=== PATIENT | male | born 1960 | race Caucasian/White ===

== ENCOUNTER → 2017-11-29 | Outpatient (CLI) | payer OTHER ==
[~2017-11-29] MED LIST: CHOL100010 PO; FLNCV PO; HYDR25TA4 PO; LISI40TA PO; PRLSR20 PO; TRAM-10 PO
[2017-11-29 11:43] LABS: BLOOD UREA NITROGEN 10 mg/dl (7-18); CREATININE 0.76 mg/dl (0.60-1.40); GLUCOSE 140 mg/dl (70-99)
[2017-11-29 11:44] LABS: ALBUMIN 4.1 gm/dl (3.4-5.0); CALCIUM 8.8 mg/dl (8.5-10.1); CARBON DIOXIDE 30 mmol/L (21-32); SODIUM 136 mmol/L (136-145); TOTAL PROTEIN 7.6 gm/dl (6.4-8.2)
[2017-11-29 11:45] LABS: ALKALINE PHOSPHATASE 66 U/L (45-117); ALT/SGPT 25 U/L (12-78); AST/SGOT 22 U/L (15-37); CHOLESTEROL 162 mg/dl (0-200)
[2017-11-29 11:46] LABS: LDL CHOLESTEROL CALCULATED 77 mg/dl
[2017-11-29 11:57] LABS: HEMOGLOBIN A1C 5.3 % (4.5-5.6)
== END | disposition home or self-care (01) ==
LOC: C.LABBC 08:14
PROVIDERS: ATTEND Family Medicine Adult Medicine
DX: I10 Essential (primary) hypertension (principal); E11.9 Type 2 diabetes mellitus without complications; E78.5 Hyperlipidemia, unspecified; Z72.0 Tobacco use; M48.061 Spinal stenosis, lumbar region without neurogenic claudication

== ENCOUNTER 2019-06-28 14:38 | Inpatient (IN) ==
[2019-06-28] MEDS ORDERED: LORazepam 1 MG/2 ML VIAL IV STA (15:31)
[2019-06-28] MEDS ORDERED: SODIUM CHLORIDE 0.9% 1000ML 500 ML IV ONE (15:37)
[2019-06-28] MEDS ORDERED: MULTI-VITAMIN INFUSION 10 ML, THIAMINE HCL 100 MG, FOLIC ACID 1 MG in SODIUM CHLORIDE 0... IV ONE (15:38)
[2019-06-28 15:43] LABS: Basophils # (auto) 0.02 K/uL (0-0.2); Basophils % (auto) 0.4 %; Eosinophils # (auto) 0.02 K/uL (0-0.5); Eosinophils % (auto) 0.4 %; Hematocrit (blood only) 38.8 % (42-52); Hemoglobin 13.9 g/dL (14.0-18.0); Immature Granulocytes # (auto) 0.02 K/uL (0.00-0.02); Immature Granulocytes % (auto) 0.4 %; Lymphocytes # (auto) 1.58 K/uL (1.2-3.4); Lymphocytes % (auto) 33.8 %; Mean Corpuscular Hemoglobin 34.2 pg (25-34); Mean Corpuscular Hgb Conc 35.8 g/dL (32-36); Mean Corpuscular Volume 95.3 fL (80-100); Mean Platelet Volume 9.7 fL (7.4-10.4); Monocytes # (auto) 0.43 K/uL (0.11-0.59); Monocytes % (auto) 9.2 %; Neutrophils # (auto) 2.61 K/uL (1.4-6.5); Neutrophils % (auto) 55.8 %; Platelet Count 265 K/uL (130-400); RDW Coefficient of Variation 12.5 % (11.5-14.5); RDW Standard Deviation 43.7 fL (36.4-46.3); Red Blood Count 4.07 M/uL (4.7-6.1); White Blood Count 4.68 K/uL (4.8-10.8)
[2019-06-28 15:51] LABS: Albumin Level 3.9 gm/dl (3.4-5.0); Aspartate Aminotransferase 76 U/L (15-37); Blood Urea Nitrogen 5 mg/dl (7-18); Calcium 8.9 mg/dl (8.5-10.1); Carbon Dioxide 26 mmol/L (21-32); Chloride 88 mmol/L (98-107); Glucose 123 mg/dl (70-99); Sodium 126 mmol/L (136-145)
[2019-06-28 15:52] LABS: Alanine Aminotransferase 65 U/L (12-78); BUN Creatinine Ratio 7.8 (10-20); Est GFR (African American) 130.3; Est GFR (Non-African American) 112.4
[2019-06-28] MEDS ORDERED: POTASSIUM CHLORIDE / WTR 10 MEQ/100 ML PLCT IV ONE (15:56)
[2019-06-28 15:57] LABS: Albumin Globulin Ratio 1.2 (0.9-2); Alkaline Phosphatase 93 U/L (45-117); Bilirubin,Total 0.8 mg/dl (0.2-1); Globulin 3.4 gm/dl (2.5-4.0); Magnesium 2.4 mg/dl (1.8-2.4); Total Protein 7.3 gm/dl (6.4-8.2); Troponin I < 0.015 ng/ml (0-0.045)
--- NOTE | 2019-06-28 16:06 | Emergency Department Note ---
ED Visit Note Patient seen with Dr. Dejesus, please see his note for details. Resident Activity Tracking Resident Involvement: Resident Care Provided Care Provided: [facility]
--- NOTE | 2019-06-28 16:10 | XRay Report ---
XR chest 1V portable CLINICAL HISTORY: 58 years-old Male presenting with seizure. TECHNIQUE: Portable upright AP view of the chest was obtained. COMPARISON: None. FINDINGS: Atherosclerosis of the aortic arch. Cardiac silhouette mildly enlarged. No focal opacity. No large ef fusion or pneumothorax. Degenerative changes of the thoracic spine. Degenerative changes of the shoul ders. Upper abdomen normal. IMPRESSION: 1. Mild cardiomegaly. No other convincing evidence of acute cardiopulmonary disease. Electronically signed by: Bimal Rodriguez M.D. 06/28/2019 4:08 PM
[2019-06-28 16:37] LABS: Amphetamines+Metham, Urine Neg (Neg); Barbiturates, Urine Neg (Neg); Benzodiazepine, Urine Neg (Neg); Cocaine, Urine Neg (Neg); MDMA (Ecstacy), Urine Neg (Neg); Methadone, Urine Neg (Neg); Opiate, Urine Neg (Neg); Phencyclidine, Urine Neg (Neg)
--- NOTE | 2019-06-28 16:50 | CT Scan Report ---
CT OF THE HEAD WITHOUT CONTRAST CLINICAL HISTORY: seizure COMPARISON STUDY: No previous studies for comparison. CT DOSE: 537.48 mGy.cm TECHNIQUE: Helical axial images of the head were obtained without IV contrast. Automated exposure con trol was utilized for the study. A dose lowering technique was utilized adhering to the principles o f ALARA. FINDINGS: No acute intracranial hemorrhage, midline shift or mass effect is present. The ventricular system is unremarkable. The basilar cisterns are patent. No extra-axial collections are present. Ther e are no findings to suggest acute dural sinus thrombosis or acute territorial infarct. No significan t calvarial abnormalities are present. Visualized portions of the sinuses and mastoid air cells are c lear. IMPRESSION: No acute intracranial findings. Electronically signed by: Donnie Russo M.D. 06/28/2019 4:47 PM
--- NOTE | 2019-06-28 17:19 | Emergency Department Note ---
Entered by Luz Marina Ugalde acting as a scribe for Ramez Dejesus MD History of Present Illness General Chief complaint: Seizure Stated complaint: seizure Time Seen by Provider: 06/28/19 14:58 Source: patient and family Mode of arrival: EMS Limitations: no limitations History of Present Illness Onset (ago): hour(s) 3 Location: head Radiation: non-radiation Pain Consistency: + now resolved Relieved By: + none Exacerbated By: + none Associated symptoms: + nausea/vomiting (+dry heaving) and + other (-tongue biting, -loss of bowel or bladder control); no chest pain, no fever/chills and no shortness of breath Treatments prior to arrival: none The patient is a 58 year old male who presents to the ED with complaints of seizure like activity that occurred around 1330 today. He does not remember the event but his parents were there and can provide history. His family states he was sitting on a chair when all of a sudden he started grunting, his eyes rolled back in his head and his head rolled back against the chair. He was briefly unresponsive so family called EMS. His father then came in the room, and eventually the patient came too after about 15 minutes. The patient did not bite his tongue. He denies losing control of his bladder or bowels. He states he does not remember feeling unwell before the episode but notes he was dry heaving this morning. He denies any recent fevers, chills, chest pain or shortness of breath. He does admit to a history of alcohol abuse and drinks around 3 to 4/30 packs of beer a week. He averages around 12 beers a day. He last drank around midnight last night. Home Medications Home Medications Medication Instructions Recorded Confirmed Type cholecalciferol (vitamin D3) 25 1,000 units PO QAM 08/22/18 06/28/19 History mcg (1,000 unit) capsule omeprazole magnesium 20 mg 20 mg PO QAM 08/22/18 06/28/19 History tablet,delayed release multivitamin 2 tab PO QAM 09/01/18 06/28/19 History hydrochlorothiazide 25 mg tablet 25 mg PO DAILY #90 tab 05/30/19 06/28/19 Rx lisinopril 40 mg tablet 40 mg PO DAILY #90 tab 05/30/19 06/28/19 Rx Allergies Allergy/AdvReac Type Severity Reaction Status Date / Time No Known Drug Allergies Allergy Unknown Verified 06/28/19 15:47 Past Med/Surg History Medical History Cardiac murmur no supervisor inspection Degenerative disc disease Diabetes mellitus (Chronic) no longer has after gastric bypass Dyslipidemia (Chronic) GERD (gastroesophageal reflux disease) History of gastric ulcer Hypertension (Chronic) Obesity (Chronic) Osteoarthritis Sleep apnea no longer has after gastric bypass Smokeless tobacco use (Chronic) Surgical History H/O repair of left rotator cuff (Chronic) H/O repair of right rotator cuff (Chronic) History of arthroscopy of left shoulder (Chronic) History of arthroscopy of right shoulder (Chronic) History of esophagogastroduodenoscopy (EGD) History of gastric bypass (Chronic) History of tonsillectomy and adenoidectomy Family History Mother Family history of diabetes mellitus Hypertension Migraine headache Unknown Diabetes Prostate cancer Other No family history of adverse response to anesthesia Social History Preferred Language: Algerian Communication Ability: Effective [place] Required: No Beliefs That Will Affect Care: None Current Living Situation: Spouse Feels Safe at Home: Yes Smoking Status: Former smoker Tobacco Type: smokeless tobacco ; Do You Dip or Chew Tobacco: Yes (1 can/day) ; Second Hand Exposure: No ; Tobacco Cessation Education Requested by Patient: No Hx Alcohol Use: Yes Alcohol type: beer Hx Substance Use: No Review of Systems See HPI for pertinent positives & negatives. and A total of 10 systems reviewed and were otherwise negative Physical Exam Vital Signs Vital Signs - 24 hr 06/28/19 14:43 06/28/19 14:47 06/28/19 15:20 Temperature 36.8 C Temperature Source Oral Pulse Rate 79 86 75 Respiratory Rate 26 H 20 17 Respiratory Effort / Characteristics Non-Labored Respiratory Depth Normal Blood Pressure 123/65 123/65 Blood Pressure Mean 69 84 Pulse Oximetry 97 Oxygen Delivery Method Room Air Sepsis Recent Fever Within 48 Hours No Sepsis Action Taken by Nursing No Action Required 06/28/19 15:30 06/28/19 16:00 06/28/19 16:41 Temperature Temperature Source Pulse Rate 73 63 Respiratory Rate 17 24 Respiratory Effort / Characteristics Respiratory Depth Blood Pressure Blood Pressure Mean Pulse Oximetry 96 Oxygen Delivery Method Room Air Sepsis Recent Fever Within 48 Hours Sepsis Action Taken by Nursing 06/28/19 16:42 06/28/19 16:43 06/28/19 17:00 Temperature Temperature Source Pulse Rate 78 88 Respiratory Rate 26 H 12 Respiratory Effort / Characteristics Respiratory Depth Blood Pressure 134/71 143/70 H Blood Pressure Mean 96 97 Pulse Oximetry Oxygen Delivery Method Sepsis Recent Fever Within 48 Hours Sepsis Action Taken by Nursing 06/28/19 17:01 06/28/19 17:30 06/28/19 17:31 Temperature Temperature Source Pulse Rate 83 65 64 Respiratory Rate 19 18 17 Respiratory Effort / Characteristics Respiratory Depth Blood Pressure 135/65 Blood Pressure Mean 78 Pulse Oximetry Oxygen Delivery Method Sepsis Recent Fever Within 48 Hours Sepsis Action Taken by Nursing GENERAL: Patient is in no acute distress. HEENT: No acute trauma, normocephalic atraumatic, mucous membranes moist, no nasal congestion, no scleral icterus. NECK: No stridor, no adenopathy, no meningismus, trachea is midline. LUNGS: Clear to auscultation bilaterally, no wheeze, no rhonchi, breath sounds equal. HEART: Subtle systolic murmur, regular rate and rhythm. ABDOMEN: Soft, nontender, bowel sounds positive, no hernias, no peritonitis. EXTREMITIES: No cyanosis or edema, full range of motion of all the joints without pain or difficulty, no signs for acute trauma. NEUROLOGIC: Oriented x 3, no acute motor or sensory deficits, no focal weakness. No cerebellar deficits. SKIN: No rash, no jaundice, no diaphoresis. Course Course 1545: The patient was evaluated in room A11 and a complete history and physical were performed. 1705: I reevaluated the patient. He is resting comfortably. I discussed his results and my recommendation he remain in the hospital for further evaluation and management and he is agreeable with the plan. 1715: I discussed the patients case with Dr. Jake Davison, [facility] ospitalist. The patient will be further evaluated. Administered Medications Enoxaparin Sodium (Lovenox) 40 mg SQ Q24H MIGUE Stop: 07/28/19 19:59 Last Admin: 06/28/19 20:50 Dose: 40 mg Documented by: [id number] Sodium Chloride (Nss 1000ml) 1,000 mls @ 75 mls/hr IV .[id number] MIGUE Stop: 07/28/19 19:44 Last Admin: 06/28/19 20:13 Dose: 75 mls/hr Documented by: [id number] Potassium Chloride (K Mark / Wtr) 10 meq in 100 mls @ 100 mls/hr IV Q1H MIGUE Stop: 06/28/19 23:59 Last Admin: 06/28/19 21:50 Dose: 100 mls/hr Documented by: [id number] Infusion: 06/28/19 21:50 Dose: 100 mls/hr Documented by: [id number] Admin: 06/28/19 20:52 Dose: 100 mls/hr Documented by: [id number] Discontinued Medications Chlordiazepoxide HCl (Librium) 50 mg PO NOW ONE Stop: 06/28/19 18:29 Last Admin: 06/28/19 19:24 Dose: 50 mg Documented by: [id number] Lorazepam (Ativan) 1 mg in 2 mls @ 2 mls/min IV NOW STA Stop: 06/28/19 15:32 Last Admin: 06/28/19 15:53 Dose: 2 mls/min Documented by: [id number] Sodium Chloride (Nss 1000ml) 500 mls @ 999 mls/hr IV .Q31M ONE Stop: 06/28/19 16:07 Last Infusion: 06/28/19 16:40 Dose: 0 mls/hr Documented by: [id number] Admin: 06/28/19 15:53 Dose: 999 mls/hr Documented by: [id number] Multivitamins 10 ml/ Thiamine HCl 100 mg/ Folic Acid 1 mg/Sodium Chloride 1,011.2 mls @ 1,011.2 mls/hr IV .Q1H ONE Stop: 06/28/19 16:37 Last Infusion: 06/28/19 19:29 Dose: 0 mls/hr Documented by: [id number] Admin: 06/28/19 16:39 Dose: 1,011.2 mls/hr Documented by: [id number] Potassium Chloride (K Mark / Wtr) 10 meq in 100 mls @ 100 mls/hr IV ONE ONE Stop: 06/28/19 16:55 Last Infusion: 06/28/19 19:29 Dose: 0 mls/hr Documented by: [id number] Admin: 06/28/19 17:20 Dose: 100 mls/hr Documented by: [id number] Medical Decision Making Differential Diagnosis The differential diagnoses considered include seizure, alcohol withdrawal, epilepsy, metabolic abnormality, electrolyte imbalance, drug abuse, dysrhythmia, intracranial mass or bleeding. Medical Records Attestation: I reviewed the patient's medical records. Home Medications Current Medication List: was personally reviewed by me Laboratory Data Attestation: I reviewed the patient's lab results. Result diagrams: 06/28/19 14:12 06/28/19 20:00 Lab Results 06/28/19 06/28/19 06/28/19 Range/Units 14:12 14:12 14:12 WBC 4.68 L (4.8-10.8) K/uL RBC 4.07 L (4.7-6.1) M/uL Hgb 13.9 L (14.0-18.0) g/dL Hct 38.8 L (42-52) % MCV 95.3 (80-100) fL MCH 34.2 H (25-34) pg MCHC 35.8 (32-36) g/dL RDW Std Deviation 43.7 (36.4-46.3) fL RDW Coeff of Cherelle 12.5 (11.5-14.5) % Plt Count 265 (130-400) K/uL MPV 9.7 (7.4-10.4) fL Immature Gran % (Auto) 0.4 % Neut % (Auto) 55.8 % Lymph % (Auto) 33.8 % [place]to[place] % (Auto) 9.2 % Eos % (Auto) 0.4 % Baso % (Auto) 0.4 % Immature Gran # (Auto) 0.02 (0.00-0.02) K/uL Neut # (Auto) 2.61 (1.4-6.5) K/uL Lymph # (Auto) 1.58 (1.2-3.4) K/uL [place] # (Auto) 0.43 (0.11-0.59) K/uL Eos # (Auto) 0.02 (0-0.5) K/uL Baso # (Auto) 0.02 (0-0.2) K/uL Sodium 126 L (136-145) mmol/L Potassium 3.0 L (3.5-5.1) mmol/L Chloride 88 L (98-107) mmol/L Carbon Dioxide 26 (21-32) mmol/L Anion Gap 12.0 H (3-11) BUN 5 L (7-18) mg/dl Creatinine 0.60 (0.6-1.4) mg/dl Est Cr Clr Drug Dosing 162.0 ml/min Est GFR ( Amer) 130.3 Est GFR (Non-Af Amer) 112.4 BUN/Creatinine Ratio 7.8 L (10-20) Glucose 123 H (70-99) mg/dl Osmolality (280-300) mOsm/kg Calcium 8.9 (8.5-10.1) mg/dl Magnesium 2.4 Cancelled (1.8-2.4) mg/dl Total Bilirubin 0.8 (0.2-1) mg/dl AST 76 H (15-37) U/L ALT 65 (12-78) U/L Alkaline Phosphatase 93 (45-117) U/L CK-MB (CK-2) (0.5-3.6) ng/ml Troponin I < 0.015 (0-0.045) ng/ml Total Protein 7.3 (6.4-8.2) gm/dl Albumin 3.9 (3.4-5.0) gm/dl Globulin 3.4 (2.5-4.0) gm/dl Albumin/Globulin Ratio 1.2 (0.9-2) TSH (0.300-4.500) uIu/ml Random Cortisol mcg/dl Urine Opiates Screen (Neg) Ur Methadone, Qual (Neg) Urine Barbiturates (Neg) Ur Phencyclidine (PCP) (Neg) U Amphetamin/Meth Scrn (Neg) MDMA (Ecstasy) Screen (Neg) U Benzodiazepines Scrn (Neg) Ur Cocaine Metabolite (Neg) U Marijuana (THC) Screen (Neg) Ethyl Alcohol mg/dL (0-3) mg/dl 06/28/19 06/28/19 06/28/19 Range/Units 14:12 14:12 14:12 WBC (4.8-10.8) K/uL RBC (4.7-6.1) M/uL Hgb (14.0-18.0) g/dL Hct (42-52) % MCV (80-100) fL MCH (25-34) pg MCHC (32-36) g/dL RDW Std Deviation (36.4-46.3) fL RDW Coeff of Cherelle (11.5-14.5) % Plt Count (130-400) K/uL MPV (7.4-10.4) fL Immature Gran % (Auto) % Neut % (Auto) % Lymph % (Auto) % Oto[place] % (Auto) % Eos % (Auto) % Baso % (Auto) % Immature Gran # (Auto) (0.00-0.02) K/uL Neut # (Auto) (1.4-6.5) K/uL Lymph # (Auto) (1.2-3.4) K/uL Otoe # (Auto) (0.11-0.59) K/uL Eos # (Auto) (0-0.5) K/uL Baso # (Auto) (0-0.2) K/uL Sodium (136-145) mmol/L Potassium (3.5-5.1) mmol/L Chloride (98-107) mmol/L Carbon Dioxide (21-32) mmol/L Anion Gap (3-11) BUN (7-18) mg/dl Creatinine (0.6-1.4) mg/dl Est Cr Clr Drug Dosing ml/min Est GFR ( Amer) Est GFR (Non-Af Amer) BUN/Creatinine Ratio (10-20) Glucose (70-99) mg/dl Osmolality 319 H (280-300) mOsm/kg Calcium (8.5-10.1) mg/dl Magnesium (1.8-2.4) mg/dl Total Bilirubin (0.2-1) mg/dl AST (15-37) U/L ALT (12-78) U/L Alkaline Phosphatase (45-117) U/L CK-MB (CK-2) 8.0 H (0.5-3.6) ng/ml Troponin I (0-0.045) ng/ml Total Protein (6.4-8.2) gm/dl Albumin (3.4-5.0) gm/dl Globulin (2.5-4.0) gm/dl Albumin/Globulin Ratio (0.9-2) TSH 1.730 (0.300-4.500) uIu/ml Random Cortisol 42.52 mcg/dl Urine Opiates Screen (Neg) Ur Methadone, Qual (Neg) Urine Barbiturates (Neg) Ur Phencyclidine (PCP) (Neg) U Amphetamin/Meth Scrn (Neg) MDMA (Ecstasy) Screen (Neg) U Benzodiazepines Scrn (Neg) Ur Cocaine Metabolite (Neg) U Marijuana (THC) Screen (Neg) Ethyl Alcohol mg/dL (0-3) mg/dl 06/28/19 06/28/19 Range/Units 15:58 16:00 WBC (4.8-10.8) K/uL RBC (4.7-6.1) M/uL Hgb (14.0-18.0) g/dL Hct (42-52) % MCV (80-100) fL MCH (25-34) pg MCHC (32-36) g/dL RDW Std Deviation (36.4-46.3) fL RDW Coeff of Cherelle (11.5-14.5) % Plt Count (130-400) K/uL MPV (7.4-10.4) fL Immature Gran % (Auto) % Neut % (Auto) % Lymph % (Auto) % [place]to[place] % (Auto) % Eos % (Auto) % Baso % (Auto) % Immature Gran # (Auto) (0.00-0.02) K/uL Neut # (Auto) (1.4-6.5) K/uL Lymph # (Auto) (1.2-3.4) K/uL Oto[place] # (Auto) (0.11-0.59) K/uL Eos # (Auto) (0-0.5) K/uL Baso # (Auto) (0-0.2) K/uL Sodium (136-145) mmol/L Potassium (3.5-5.1) mmol/L Chloride (98-107) mmol/L Carbon Dioxide (21-32) mmol/L Anion Gap (3-11) BUN (7-18) mg/dl Creatinine (0.6-1.4) mg/dl Est Cr Clr Drug Dosing ml/min Est GFR ( Amer) Est GFR (Non-Af Amer) BUN/Creatinine Ratio (10-20) Glucose (70-99) mg/dl Osmolality (280-300) mOsm/kg Calcium (8.5-10.1) mg/dl Magnesium (1.8-2.4) mg/dl Total Bilirubin (0.2-1) mg/dl AST (15-37) U/L ALT (12-78) U/L Alkaline Phosphatase (45-117) U/L CK-MB (CK-2) (0.5-3.6) ng/ml Troponin I (0-0.045) ng/ml Total Protein (6.4-8.2) gm/dl Albumin (3.4-5.0) gm/dl Globulin (2.5-4.0) gm/dl Albumin/Globulin Ratio (0.9-2) TSH (0.300-4.500) uIu/ml Random Cortisol mcg/dl Urine Opiates Screen Neg (Neg) Ur Methadone, Qual Neg (Neg) Urine Barbiturates Neg (Neg) Ur Phencyclidine (PCP) Neg (Neg) U Amphetamin/Meth Scrn Neg (Neg) MDMA (Ecstasy) Screen Neg (Neg) U Benzodiazepines Scrn Neg (Neg) Ur Cocaine Metabolite Neg (Neg) U Marijuana (THC) Screen Neg (Neg) Ethyl Alcohol mg/dL 195.0 H (0-3) mg/dl Imaging Data Radiologist's Impression: Radiology results as stated below per my review and the radiologist's interpretation: XR chest 1V portable CLINICAL HISTORY: 58 years-old Male presenting with seizure. TECHNIQUE: Portable upright AP view of the chest was obtained. COMPARISON: None. FINDINGS: Atherosclerosis of the aortic arch. Cardiac silhouette mildly enlarged. No focal opacity. No large effusion or pneumothorax. Degenerative changes of the thoracic spine. Degenerative changes of the shoulders. Upper abdomen normal. IMPRESSION: 1. Mild cardiomegaly. No other convincing evidence of acute cardiopulmonary disease. Electronically signed by: Bimal Rodriguez M.D. 06/28/2019 4:[address] OF THE HEAD WITHOUT CONTRAST CLINICAL HISTORY: seizure COMPARISON STUDY: No previous studies for comparison. CT DOSE: 537.48 mGy.cm TECHNIQUE: Helical axial images of the head were obtained without IV contrast. Automated exposure control was utilized for the study. A dose lowering technique was utilized adhering to the principles of ALARA. FINDINGS: No acute intracranial hemorrhage, midline shift or mass effect is present. The ventricular system is unremarkable. The basilar cisterns are patent. No extra-axial collections are present. There are no findings to suggest acute dural sinus thrombosis or acute territorial infarct. No significant calvarial abnormalities are present. Visualized portions of the sinuses and ma stoid air cells are clear. IMPRESSION: No acute intracranial findings. Electronically signed by: Donnie Russo M.D. 06/28/2019 4:47 PM ECG Data Attestation: I personally reviewed and interpreted this ECG as follows: Indication: + weakness (seizure like activity) Rate (beats per minute): 70 Rhythm: + normal sinus ECG Intervals/blocks: + Normal QT-c (QTC is 438) ECG ST segments: no ST elevation ECG Findings: no PVCs Blood Pressure Blood Pressure Findings: Elevated blood pressure Blood Pressure Disposition: further management by hospitalist MDM Narrative Resident Physician Supervision Note: I did perform an independent evaluation and examination of this patient as described. I also saw this patient in conjunction with the resident, Dr. Ravi Nayak MD, and guided management for the patient. There is no leukocytosis. No worrisome anemia. Renal panel testing shows a low sodium and a low potassium. AST mildly elevated, no bilirubin elevation. EKG shows a sinus rhythm, no acute ischemia. Cardiac enzyme testing x1 is not co nsistent with acute cardiac injury. Alcohol level was elevated at 195. Urine tox was negative. Brain CT shows no acute bleed or mass-effect. Chest film does not show pneumonia or CHF. On exam, the patient was awake and interactive, there were no focal neurologic deficits. The patient was given IV potassium, IV Ativan and IV saline. He was given a bag of saline, multivitamins, thiamine and folate. The patient presents with a potential seizure. This seizure activity certainly could have been secondary to alcohol withdrawal. He does have a low sodium and low magnesium in addition. I do think a hospital stay for further work-up is warranted. Patient was told results of all his findings. Case management has been involved. The on-call hospitalist has been consulted. Impression & Plan Seizure, Hyponatremia, Hypokalemia, Alcohol abuse Discharge Plan Visit Data *Final* Discharge Date/Time: 06/28/19 19:30 Chief Complaint: Seizure Stated Complaint: seizure ED Provider: Ramez Dejesus ED Midlevel Provider: Ravi Nayak Discharge Problem: Seizure, Hyponatremia, Hypokalemia, Alcohol abuse Patient Disposition: Admitted As Inpatient Discharge Instructions Interventions: ED Discharge Assessment Last Done: 06/28/19 19:30 The scribe's documentation has been prepared under my direction and personally reviewed by me in its entirety. I confirm that the note above accurately reflects all work, treatment, procedures, and medical decision making performed by me.
[2019-06-28] MEDS ORDERED: chlordiazePOXIDE HCl 25 MG CAP PO ONE (18:28)
--- NOTE | 2019-06-28 18:43 | History & Physical Report ---
Date of Service June 28, 2019 Assessment & Plan (1) Seizure: 58-year-old male was admitted on 28 June 2019 for seizure and electrolyte issues. Seizure: First known seizure-like activity around 1330 on day of admit. No reported recent fevers/illness, trauma, or illicit drug use. Does have moderate hyponatremia. No present neuro deficits to suggest CVA. - In ED, afebrile, not tachycardic or tachypneic, normotensive with normal room SpO2. WBC 4. Negative TnI and EKG NSR 70. UDS negative. Positive EtOH. CT head without acute findings. pCXR with questionable cardiomegaly but otherwise non-acute. - In ED, given normal saline IVF, thiamine + folate + MVI via IV, and 1 mg of Ativan. - Consult neurology. Alcohol treatment as below. Hold further antiepileptics initially but Ativan prn for new seizure. Alcohol abuse: Reportedly drinks anywhere between 6-15 beers a day. Admit EtOH 195, AST 76, ALT 65. - Will place on AWSS program. High risk for DTs. Start Librium taper: 50 mg PO x 1, then 25 mg PO x 3 doses, then 10 mg PO x 3 doses. Thiamine and folic acid daily. Hyponatremia: Admit Na 126, likely related to beer potomania. No obvious related cognitive symptoms. - Will hold home HCTZ. Check serum Osm and urine Osm + Na. Treat with NS IVF at 75 mL/hr. Goal rise Na < 2 mmol/L in a four hour timeframe. Check BMP q4h x 4. Also check CK and TSH. Hypokalemia: Admit K 3.0. Replacement began in ED. Will continue and recheck in a.m. (along with Mg). Ongoing medical history: - Hypertension, hyperlipidemia: Hold home HCTZ and Lisinopril given current electrolyte issues. - GERD: Continue home omeprazole. - PMH diabetes, sleep apnea, obesity: Reportedly all resolved after gastric bypass surgery. Will check A1c. - ? 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 Admit creatinine 0.6. Code status: Full code. Diet: Regular but fluid restrict to 1200 mL. DVT prophy: Lovenox. PT/OT: Deferred. Disbo: Admit to [facility] telemetry. (2) Alcohol abuse: (3) Hyponatremia: (4) Hypokalemia: (5) Hypertension: (6) Dyslipidemia: (7) H/O gastric bypass: (8) GERD (gastroesophageal reflux disease): History of Present Illness Primary Care Provider: Rosendo Mckeon DO 58-year-old male presents after having a likely first-time seizure. Patient does not recall all the events but does recall shaking for a period of time and being confused. History is per family (not present during this H&P), thus via the patient's recollections of their account and the ED notes. - Patient notes that around 1330 today he had the sudden onset of some grunting, eye rolling, and then became unresponsive with generalized shaking. This lasted for a few minutes (exact time unknown) followed by a period of decreased responsiveness. In total lasted perhaps 15 minutes. Patient denies any tongue biting or bowel/bladder incontinence. He denies any vomiting as well. - No known history of the same. He denies any recent fevers or feeling of illness, head injuries, illicit drug use, or other suspected sources. Patient does have a history of alcohol abuse. On this H&P, he says he drinks about 6 beers per day. Per the ED's account, he drinks 12-15 beers per day. - At present, patient denies any symptoms at all. Specifically, he denies any headache, blurry vision, difficulty with speech or movement of his extremities, focal pain anywhere, or any emergent concerns. He says he is only here at the insistence of his family. - On review of systems, patient made mention that he takes hydrochlorothiazide for his blood pressure but says it also helps him urinate. 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 He also notes he had a history of hyperlipidemia, diabetes, sleep apnea, and obesity. He says all of these issues resolved after he underwent gastric bypass surgery around 2004. - Past medical history includes hypertension, hyperlipidemia, diabetes, sleep ap too, obesity, GERD, gastric ulcer, osteoarthritis, degenerative disc disease - Past surgical history includes gastric bypass, tonsillectomy and adenoidectomy, arthroscopy of bilateral shoulders, bilateral rotator cuff repairs - Social history includes prior cigar smoker. Drinks beer as noted above. Lives at home with . Allergies Allergy/AdvReac Type Severity Reaction Status Date / Time No Known Drug Allergies Allergy Unknown Verified 06/28/19 15:47 Home Medications Home Medications Medication Instructions Recorded Confirmed Type cholecalciferol (vitamin D3) 25 1,000 units PO QAM 08/22/18 06/28/19 History mcg (1,000 unit) capsule omeprazole magnesium 20 mg 20 mg PO QAM 08/22/18 06/28/19 History tablet,delayed release multivitamin 2 tab PO QAM 09/01/18 06/28/19 History hydrochlorothiazide 25 mg tablet 25 mg PO DAILY #90 tab 05/30/19 06/28/19 Rx lisinopril 40 mg tablet 40 mg PO DAILY #90 tab 05/30/19 06/28/19 Rx Past Med/Surg History Medical History Cardiac murmur no mix mill tender Degenerative disc disease Diabetes mellitus (Chronic) no longer has after gastric bypass Dyslipidemia (Chronic) GERD (gastroesophageal reflux disease) History of gastric ulcer Hypertension (Chronic) Obesity (Chronic) Osteoarthritis Sleep apnea no longer has after gastric bypass Smokeless tobacco use (Chronic) Surgical History H/O repair of left rotator cuff (Chronic) H/O repair of right rotator cuff (Chronic) History of arthroscopy of left shoulder (Chronic) History of arthroscopy of right shoulder (Chronic) History of esophagogastroduodenoscopy (EGD) History of gastric bypass (Chronic) History of tonsillectomy and adenoidectomy Family History Mother Family history of diabetes mellitus Hypertension Migraine headache Unknown Diabetes Prostate cancer Other No family history of adverse response to anesthesia Social History Preferred Language: Pashto Communication Ability: Effective 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: No Beliefs That Will Affect Care: None Current Living Situation: Spouse Feels Safe at Home: Yes Smoking Status: Former smoker Tobacco Type: smokeless tobacco ; Do You Dip or Chew Tobacco: Yes (1 can/day) ; Second Hand Exposure: No ; Tobacco Cessation Education Requested by Patient: No Hx Alcohol Use: Yes Alcohol type: beer Hx Substance Use: No Review of Systems Review of Systems: Constitutional: Denies fevers, chills, focal weakness Eyes: Denies any visual loss or diplopia ENT: Denies any ear/nose/throat pain or difficulty speaking or swallowing Respiratory: Denies any dyspnea, cough, hemoptysis Cardiovascular: Denies any chest pain or feeling of edema Gastrointestinal: Denies any abdominal pain, nausea/vomiting/diarrhea Musculoskeletal: Denies any acute extremity pains, myalgias, or focal weakness Skin: Denies any known acute rashes or lesions Neuro: Denies any headache, acute focal weakness or numbness, or difficulties with speech or swallow. Positive seizure-like activity as noted above. Physical Exam Physical Exam: GENERAL: Awake, alert, well-appearing, in no acute distress HENT: Normocephalic, atraumatic. Oropharynx unremarkable. EYES: Normal conjunctiva. Sclera non-icteric. NECK: Inspection normal. Non-tender. Supple and full ROM. No nuchal rigidity. CARDIAC: +S1S2 RRR, no murmurs. RESPIRATORY: Clear to auscultation. No wheezes or rales. Normal respiratory effort. GI: +BS, soft, non-distended. No tenderness to palpation. No rebound or guarding. Positive right-sided mid abdominal wall hernia that is easily and self reducible. EXTREMITIES: No pedal edema or calf tenderness. Moving all extremities naturally and easily. NEURO: Cranial nerves grossly intact. Normal strength and sensation in all extremities. Results & Data Vital Signs (Past 12 Hours) Vital Signs Temp Pulse Resp BP Pulse Ox 06/28/19 16:42 134/71 06/28/19 16:41 96 06/28/19 16:00 63 24 06/28/19 15:30 73 17 06/28/19 15:20 75 17 06/28/19 14:47 36.8 C 86 20 123/65 97 06/28/19 14:43 79 26 H 123/65 Laboratory Results 06/28/19 06/28/19 06/28/19 Range/Units 16:00 15:58 14:12 WBC (4.8-10.8) K/uL RBC (4.7-6.1) M/uL Hgb (14.0-18.0) g/dL Hct (42-52) % MCV (80-100) fL MCH (25-34) pg MCHC (32-36) g/dL RDW Std Deviation (36.4-46.3) fL RDW Coeff of Cherelle (11.5-14.5) % Plt Count (130-400) K/uL MPV (7.4-10.4) fL Immature Gran % (Auto) % Neut % (Auto) % Lymph % (Auto) % [place] % (Auto) % Eos % (Auto) % Baso % (Auto) % Immature Gran # (Auto) (0.00-0.02) K/uL Neut # (Auto) (1.4-6.5) K/uL Lymph # (Auto) (1.2-3.4) K/uL [place] # (Auto) (0.11-0.59) K/uL Eos # (Auto) (0-0.5) K/uL Baso # (Auto) (0-0.2) K/uL Sodium (136-145) mmol/L Potassium (3.5-5.1) mmol/L Chloride (98-107) mmol/L Carbon Dioxide (21-32) mmol/L Anion Gap (3-11) BUN (7-18) mg/dl Creatinine (0.6-1.4) mg/dl Est Cr Clr Drug Dosing ml/min Est GFR ( Amer) Est GFR (Non-Af Amer) BUN/Creatinine Ratio (10-20) Glucose (70-99) mg/dl Calcium (8.5-10.1) mg/dl Magnesium Cancelled (1.8-2.4) mg/dl Total Bilirubin (0.2-1) mg/dl AST (15-37) U/L ALT (12-78) U/L Alkaline Phosphatase (45-117) U/L Troponin I (0-0.045) ng/ml Total Protein (6.4-8.2) gm/dl Albumin (3.4-5.0) gm/dl Globulin (2.5-4.0) gm/dl Albumin/Globulin Ratio (0.9-2) Urine Opiates Screen Neg (Neg) Ur Methadone, Qual Neg (Neg) Urine Barbiturates Neg (Neg) Ur Phencyclidine (PCP) Neg (Neg) U Amphetamin/Meth Scrn Neg (Neg) MDMA (Ecstasy) Screen Neg (Neg) U Benzodiazepines Scrn Neg (Neg) Ur Cocaine Metabolite Neg (Neg) U Marijuana (THC) Screen Neg (Neg) Ethyl Alcohol mg/dL 195.0 H (0-3) mg/dl 06/28/19 06/28/19 Range/Units 14:12 14:12 WBC 4.68 L (4.8-10.8) K/uL RBC 4.07 L (4.7-6.1) M/uL Hgb 13.9 L (14.0-18.0) g/dL Hct 38.8 L (42-52) % MCV 95.3 (80-100) fL MCH 34.2 H (25-34) pg MCHC 35.8 (32-36) g/dL RDW Std Deviation 43.7 (36.4-46.3) fL RDW Coeff of Cherelle 12.5 (11.5-14.5) % Plt Count 265 (130-400) K/uL MPV 9.7 (7.4-10.4) fL Immature Gran % (Auto) 0.4 % Neut % (Auto) 55.8 % Lymph % (Auto) 33.8 % [place] % (Auto) 9.2 % Eos % (Auto) 0.4 % Baso % (Auto) 0.4 % Immature Gran # (Auto) 0.02 (0.00-0.02) K/uL Neut # (Auto) 2.61 (1.4-6.5) K/uL Lymph # (Auto) 1.58 (1.2-3.4) K/uL [place] # (Auto) 0.43 (0.11-0.59) K/uL Eos # (Auto) 0.02 (0-0.5) K/uL Baso # (Auto) 0.02 (0-0.2) K/uL Sodium 126 L (136-145) mmol/L Potassium 3.0 L (3.5-5.1) mmol/L Chloride 88 L (98-107) mmol/L Carbon Dioxide 26 (21-32) mmol/L Anion Gap 12.0 H (3-11) BUN 5 L (7-18) mg/dl Creatinine 0.60 (0.6-1.4) mg/dl Est Cr Clr Drug Dosing 162.0 ml/min Est GFR ( Amer) 130.3 Est GFR (Non-Af Amer) 112.4 BUN/Creatinine Ratio 7.8 L (10-20) Glucose 123 H (70-99) mg/dl Calcium 8.9 (8.5-10.1) mg/dl Magnesium 2.4 (1.8-2.4) mg/dl Total Bilirubin 0.8 (0.2-1) mg/dl AST 76 H (15-37) U/L ALT 65 (12-78) U/L Alkaline Phosphatase 93 (45-117) U/L Troponin I < 0.015 (0-0.045) ng/ml Total Protein 7.3 (6.4-8.2) gm/dl Albumin 3.9 (3.4-5.0) gm/dl Globulin 3.4 (2.5-4.0) gm/dl Albumin/Globulin Ratio 1.2 (0.9-2) Urine Opiates Screen (Neg) Ur Methadone, Qual (Neg) Urine Barbiturates (Neg) Ur Phencyclidine (PCP) (Neg) U Amphetamin/Meth Scrn (Neg) MDMA (Ecstasy) Screen (Neg) U Benzodiazepines Scrn (Neg) Ur Cocaine Metabolite (Neg) U Marijuana (THC) Screen (Neg) Ethyl Alcohol mg/dL (0-3) mg/dl Medications Administered Discontinued Medications Lorazepam (Ativan) 1 mg in 2 mls @ 2 mls/min IV NOW STA Stop: 06/28/19 15:32 Last Admin: 06/28/19 15:53 Dose: 2 mls/min Documented by: [id number] Sodium Chloride (Nss 1000ml) 500 mls @ 999 mls/hr IV .Q31M ONE Stop: 06/28/19 16:07 Last Infusion: 06/28/19 16:40 Dose: 0 mls/hr Documented by: [id number] Admin: 06/28/19 15:53 Dose: 999 mls/hr Documented by: [id number] Multivitamins 10 ml/ Thiamine HCl 100 mg/ Folic Acid 1 mg/Sodium Chloride 1,011.2 mls @ 1,011.2 mls/hr IV .Q1H ONE Stop: 06/28/19 16:37 Last Admin: 06/28/19 16:39 Dose: 1,011.2 mls/hr Documented by: [id number] Potassium Chloride (K Mark / Wtr) 10 meq in 100 mls @ 100 mls/hr IV ONE ONE Stop: 06/28/19 16:55 Last Admin: 06/28/19 17:20 Dose: 100 mls/hr Documented by: [id number] Code Status & VTE Plan Code Status Full code VTE Prophylaxis Plan VTE Prophylaxis will be ordered: Yes Supervising Physician Co-Signing Physician Notes I personally interviewed and examined the patient. I agree with history of present illness and physical exam mentioned above, I also performed my own history taking and examination. Past medical history and review of system has been obtained by myself I reviewed all pertinent labs and studies Reviewed current medications I discussed and formulated of the assessment and plan mentioned above. Please refer to the Summary mentioned below. 58 years old man with history of significant alcohol abuse in the form of more than 30 cans of beers every day also patient chews tobacco, was in his regular state of health until he had an episode of seizure today. Presented to the hospital and was found to have sodium level of 126, alcohol level of 195, Potassium level of 3 Currently appears to be stable. Hyponatremia/failure to thrive/generalized fatigue, multifactorial, anorexia, decreased solute intake, check serum and urine osmolality , check TSH and cortisol level order urine sodium and potassium consider sodium tablets if sodium level do not improve Nephrology consult if needed if sodium level fail to rise Consider starting Tolvaptan while inpatient, to monitor closely sodium level but will leave this decision up to bottom presser as he should be consulted prior to starting tolvaptan. Monitor sodium level closely/every 8 hours, avoid correcting sodium with a rate faster than 6 mmol per day Check orthostatic vitals daily Avoid a rate of correction > 0.5 mmol/ hour INF hydration Continue boost supplement General Appearance: not in acute distress Eyes: normal Sclerae, extraocular muscle intact ENT: hearing grossly normal Neck: supple Respiratory/Chest: normal air entry bilateral ,no respiratory distress, no accessory muscle use Cardiovascular: regular rate, rhythm, no murmur Abdomen: non tender, soft, no masses Extremities: no edema musculoskeletal: no significant swelling or inflammation in any joint Neurologic/Psychiatric: Awake alert oriented times place and person moves all extremities sensation intact cranial nerves II-12 appear to be intact Skin: normal color, warm/dry, no rash Lito Davison MD, [facility]
[2019-06-28] MEDS ORDERED: LORazepam 1 MG/2 ML VIAL IV PRN (19:45)
[2019-06-28] MEDS ORDERED: LORazepam 2 MG/4 ML VIAL IV PRN (19:45)
[2019-06-28] MEDS: SODIUM CHLORIDE 0.9% 1000ML 1,000 ML IV SCH (20:13)
[2019-06-28] MEDS: ENOXAPARIN INJ 40 MG/0.4 ML SYR SQ SCH (20:50)
[2019-06-28] MEDS: POTASSIUM CHLORIDE / WTR 10 MEQ/100 ML PLCT IV SCH ×3 (20:52→22:57)
[2019-06-28 21:02] LABS: BUN Creatinine Ratio 7.9 (10-20); Calcium 8.6 mg/dl (8.5-10.1); Creatinine Clr Calc Pharmacy 206.3 ml/min; Est GFR (Non-African American) 124.3; Magnesium 2.3 mg/dl (1.8-2.4); Potassium 3.5 mmol/L (3.5-5.1)
--- NOTE | 2019-06-28 22:45 | Billing Data ---
Date of Service June 28, 2019 Coding Level of Care Code 75612 Initial Inpt Care Lvl 3
[2019-06-28 23:16] LABS: Potassium Random Urine 19.8 mmol/L
[2019-06-29] MEDS: POTASSIUM CHLORIDE / WTR 10 MEQ/100 ML PLCT IV SCH (00:03)
[2019-06-29 00:14] LABS: BUN Creatinine Ratio 10.8 (10-20); Blood Urea Nitrogen 5 mg/dl (7-18); Calcium 8.5 mg/dl (8.5-10.1); Carbon Dioxide 25 mmol/L (21-32); Chloride 96 mmol/L (98-107); Est GFR (African American) 142.8; Est GFR (Non-African American) 123.2; Glucose 86 mg/dl (70-99); Potassium 3.4 mmol/L (3.5-5.1); Sodium 130 mmol/L (136-145)
[2019-06-29 00:27] LABS: Troponin I < 0.015 ng/ml (0-0.045)
[2019-06-29] MEDS: chlordiazePOXIDE HCl 25 MG CAP PO SCH ×3 (05:47→21:38)
[2019-06-29 06:02] LABS: Estimated Average Glucose 97 mg/dl
[2019-06-29 06:52] LABS: Basophils # (auto) 0.02 K/uL (0-0.2); Basophils % (auto) 0.4 %; Eosinophils # (auto) 0.03 K/uL (0-0.5); Eosinophils % (auto) 0.6 %; Hematocrit (blood only) 36.8 % (42-52); Hemoglobin 12.9 g/dL (14.0-18.0); Immature Granulocytes # (auto) 0.03 K/uL (0.00-0.02); Immature Granulocytes % (auto) 0.6 %; Lymphocytes # (auto) 0.93 K/uL (1.2-3.4); Mean Corpuscular Hemoglobin 34.4 pg (25-34); Mean Corpuscular Hgb Conc 35.1 g/dL (32-36); Mean Corpuscular Volume 98.1 fL (80-100); Mean Platelet Volume 9.4 fL (7.4-10.4); Monocytes # (auto) 0.54 K/uL (0.11-0.59); Monocytes % (auto) 10.4 %; Neutrophils # (auto) 3.63 K/uL (1.4-6.5); Platelet Count 207 K/uL (130-400); RDW Coefficient of Variation 12.6 % (11.5-14.5); RDW Standard Deviation 45.2 fL (36.4-46.3); Red Blood Count 3.75 M/uL (4.7-6.1); White Blood Count 5.18 K/uL (4.8-10.8)
[2019-06-29 07:26] LABS: Albumin Level 3.3 gm/dl (3.4-5.0); BUN Creatinine Ratio 9.9 (10-20); Calcium 8.8 mg/dl (8.5-10.1); Creatinine Clr Calc Pharmacy 167.2 ml/min; Est GFR (African American) 132.1; Magnesium 2.2 mg/dl (1.8-2.4); Potassium 3.2 mmol/L (3.5-5.1)
[2019-06-29 07:31] LABS: BUN Creatinine Ratio 9.3 (10-20); Blood Urea Nitrogen 5 mg/dl (7-18); Calcium 8.6 mg/dl (8.5-10.1); Carbon Dioxide 27 mmol/L (21-32); Chloride 99 mmol/L (98-107); Creatinine Clr Calc Pharmacy 167.2 ml/min; Est GFR (African American) 132.1; Glucose 103 mg/dl (70-99); Potassium 3.2 mmol/L (3.5-5.1); Sodium 133 mmol/L (136-145)
[2019-06-29 07:32] LABS: Albumin Globulin Ratio 1.1 (0.9-2); Bilirubin,Total 1.3 mg/dl (0.2-1); Globulin 3.1 gm/dl (2.5-4.0); Total Protein 6.4 gm/dl (6.4-8.2)
[2019-06-29 07:36] LABS: Troponin I < 0.015 ng/ml (0-0.045)
[2019-06-29] MEDS: CHOLECALCIFEROL 1,000 UNITS TAB PO SCH (08:59)
[2019-06-29] MEDS: PANTOprazole 40 MG TAB PO SCH (08:59)
[2019-06-29] MEDS: THIAMINE HCL 100 MG in SYRINGE 9 ML IV SCH (09:01)
[2019-06-29] MEDS: FOLIC ACID 1 MG in SYRINGE 9.8 ML IV SCH (09:01)
[2019-06-29] MEDS: SODIUM CHLORIDE 0.9% 1000ML 1,000 ML IV SCH (09:12)
[2019-06-29] MEDS ORDERED: POTASSIUM CHLORIDE 20 MEQ TABCR PO STA (15:24)
--- NOTE | 2019-06-29 16:43 | Hospitalist Progress Note ---
Date of Service June 29, 2019 Assessment & Plan (1) Seizure: -Possible seizure activity occurring on 06/28 -patient reports being in his normal state of health yesterday when he woke up but then experienced significant fatigue in which he took a nap. Upon awakening he remembers still feeling pretty fatigued and sat down in a chair. He cannot recall further events but states his eyes rolled to the back of his head and describes possible tonic-clonic movement. She reports it taking approximately 15 minutes for him to be largely back to normal -No current seizure activity since hospitalized -does report significant alcohol intake and was approximately 12 hours out from this episode yesterday; he is also noted to have hyponatremia however this was 126 on admission so low suspicion this was the underlying cause; no focal deficits appreciated; does report history of positive Lyme disease and states likely could have exposure but no other specific symptoms -Echo -EF greater than 70%, left ventricle is hyperdynamic, no regional wall motion abnormalities and no significant valvular pathology, and grade 1 diastolic dysfunction --Troponins negative x3 -History of sleep apnea which is noted to be cured since his gastric bypass - given presence of symptoms after he napped possible correlation? -Consult neurology -appreciate input or need for further testing? (2) Alcohol abuse: -Patient reports approximately 12-15 beers a day and family concurs -He reports he has quit cold turkey in the past without seizure activity however states he was drinking significantly less at that time; patient understands that he needs to quit drinking at this time and is willing to stay in the hospital to assist with this however is not interested in outpatient rehab currently -He is interested in having resources available to him should he decide to get additional help -Continue AWSS protocol and continue Librium taper given high risk for withdrawal -patient currently has very mild tremors of bilateral hands and some mild anxiety that he reports but otherwise very stable; intermittent sinus tachycardia on monitor but no irregular rhythms -Folic acid 1 mg daily and thiamine 100 mg daily -Last drink approximately midnight 06/28 -nearly 24 hours out from last drink (3) Hyponatremia: -NA 126 on admission and currently at 133 -likely combination of beer potomania and HCTZ use --Even though sodium was low unlikely this is the underlying culprit for this possible seizure activity -TSH within normal limits -We will continue to monitor with daily labs (4) Hypertension: -Holding HCTZ currently and will cover with as needed hydralazine; holding lisinopril which can likely be added tomorrow DVT prophylaxis: Lovenox 40 mg SC daily Disposition: Ongoing monitoring as patient does wish to stop drinking and will continue Librium taper; await further recommendations from neurology; anticipate return home when medically optimized Subjective Patient reports feeling well today. Has a mild tremor of the hands but no new complaints. Had a long discussion with patient and . He is almost 24 hours out from his last drink. Is on Librium but no major signs of withdrawal. States he has gone longer durations without alcohol without seizures in the past. Also stopping drinking cold turkey without issues but states he drank significantly less at that time compared to now. He states he remembers feeling significant fatigue/generalized weakness yesterday and took a nap but still felt this way when he woke up prior to his suspected seizure. He cannot recall the events of this episode but was witnessed by his . He does report a history of Lyme disease which is confirmed in our records. No other symptoms to suggest Lyme disease at this time. Review of Systems Constitutional: no fever, no chills, no body aches and no fatigue Eyes: no worsening vision Ear, Nose, Mouth, Throat: no nasal congestion, no sore throat, no hoarseness and no dysphagia Respiratory: no cough and no dyspnea Cardiovascular: no chest pain, no palpitations, no lightheadedness and no edema Gastrointestinal: + diarrhea/loose stools; no abdominal pain, no nausea, no vomiting, no constipation, no blood in stools and no melena Genitourinary: no dysuria Musculoskeletal: + back pain (Chronic) Integumentary: no rash Neurologic: no generalized weakness, no tingling and no numbness Psychiatric: + substance abuse (Alcohol) Physical Exam Constitutional: WD/WN, vitals as above Eyes: + anicteric sclerae ENMT: Ears: no hearing impairment Neck: trachea midline Respiratory: normal respiratory effort, lungs clear to auscultation Cardiovascular: RRR, no murmur, no edema Gastrointestinal (Abdomen): Inspection/Auscultation: normal bowel sounds Percussion/Palpation: abdomen soft; abdomen nontender Large well-healed midline incision that appears to have healed with secondary intention Musculoskeletal: Head/Neck/Chest: normocephalic and head atraumatic Skin: no rashes, warm and dry Neurologic: moves all extremities and awake; no focal motor deficits Motor/Sensory: + tremor (Mild in bilateral hands) Psychiatric: A+Ox3, euthymic affect Motor Behavior: + tremor (Mild in bilateral hands) Speech: normal rate/rhythm/volume of speech Affect: euthymic affect Results & Data Vital Signs (Past 12 Hours) Vital Signs Temp Pulse Pulse Resp BP Pulse Ox 06/29/19 15:49 36.9 C 88 20 186/94 H 97 06/29/19 11:32 36.9 C 88 18 163/83 H 96 06/29/19 08:00 71 06/29/19 07:19 36.8 C 78 18 156/77 H 99 PG Care Time/CCT Total # of Minutes Spent Total Time Spent with Patient: Total time spent is greater than 50% in coordination of care (as documented) at patient's floor/unit and/or counseling patient:
[2019-06-29] MEDS ORDERED: HydrALAZINE HCL 20 MG/ML VIAL IV PRN (16:59)
--- NOTE | 2019-06-29 19:50 | Neurology Consultation ---
Date of Consultation June 29, 2019 Assessment & Plan (1) Seizure: Matthew Rao is a 58 yo man w/ PMH of alcohol abuse, tobacco abuse, HTN, HLD, DM, GERD, AMADOU, and lumbar disc disease who p/t [facility] after an episode of seizure-like activity. # Seizure-like event: per 's description of event, the prolonged length, no real anion gap on arrival to ED and the self-termination without medication or post-ictal period, the semiology of this event is not consistent with a seizure. He clearly has risk factors for alcohol withdrawal/DTs and sodium of 126 is on the borderline to contribute to seizures (likely is close to his baseline chronically, so less likely to trigger a seizure). - recommend obtaining an outpatient MRI brain as he is requesting an open scanner (can be scheduled at 611 in [place]) - outpatient EEG - follow up in neurology clinic in 4-6 weeks after obtaining above testing - no need to start an AED at this time as event is unlikely a seizure, and if so, would likely be considered provoked - DMV form given unexplained LoC with no aura - discussed with patient and his extensively the plan going forward and thoughts that this was unlikely to be a seizure - recommend 30 day event monitor on discharge - would obtain CTA head and neck to rule out any dissection or blood vessel (especially vertebral dissection as he reports going to the chiropractor and having neck pain) as basilar strokes/TIAs can cause strange symptoms like his w jimi described Thank you for this interesting consult. Please text or call with questions. (2) Hyponatremia: (3) Alcohol abuse: History of Present Illness Attending Physician: Doug Cohen, History of Present Illness Matthew Rao is a 58 yo man w/ PMH of alcohol abuse, tobacco abuse, HTN, HLD, DM, GERD, AMADOU, and lumbar disc disease who p/t [facility] after an episode of seizure- like activity. His reports that Matthew was feeling under the weather yesterday and rested most of the morning. He came out to the kitchen around lunch time and asked her what she was doing (which he remembers) and then sat down at the table next to her. She reports that a few minutes later, she heard gurgling and looked up to see Matthew with his head spinning in circles, eyes open and rolled back, and arms non-rhythmically shaking. He seemed to be breathing weird initially and choking on secretions. She called 911 for assistance and kept him in the chair. He continued to have this event for about 10-15 minutes, then his dad arrived at which point Matthew continued to have head wobbling and arm shaking, but got out of the chair and walked towards his dad. After about 5 more minutes, he was able to answer questions to his dad and then went back to talking/moving normally with no post ictal period of confusion. He did feel tired. No tongue biting or loss of bowel/bladder. He denies ever having an episode like this in the past. In the ED, lab work was notable for WBC 4.68, Plts 265, Na 126, K 3.0, AG 12 (minimally elevated), Cr 0.6, glucose 123, Ca/Mg WNL, troponin negative, TSH WNL, UDS negative, alcohol level 195. CXR showed mild cardiomegaly. CTH showed no hemorrhage or hypodensity. EKG showed NSR. He was given IVFs, thiamine/folate/MV and admitted for further workup. TTE showed EF > 70% with hyperdynamic LV. A1c 5.0, LDL 32, folate WNL, random cortisol WNL. He reports that he is back to his baseline. He denies any headaches, fevers, neck stiffness, URI. No recent medication changes. No seizure risk factors (brother has epilepsy 2/2 anoxic brain injury from overdose injury). Allergies Allergy/AdvReac Type Severity Reaction Status Date / Time No Known Drug Allergies Allergy Unknown Verified 06/28/19 15:47 Home Medications Home Medications Medication Instructions Recorded Confirmed Type cholecalciferol (vitamin D3) 25 1,000 units PO QAM 08/22/18 06/28/19 History mcg (1,000 unit) capsule omeprazole magnesium 20 mg 20 mg PO QAM 08/22/18 06/28/19 History tablet,delayed release multivitamin 2 tab PO QAM 09/01/18 06/28/19 History hydrochlorothiazide 25 mg tablet 25 mg PO DAILY #90 tab 05/30/19 06/28/19 Rx lisinopril 40 mg tablet 40 mg PO DAILY #90 tab 05/30/19 06/28/19 Rx Patient History Medical History Cardiac murmur no medical psychotherapist Degenerative disc disease Diabetes mellitus (Chronic) no longer has after gastric bypass Dyslipidemia (Chronic) GERD (gastroesophageal reflux disease) History of gastric ulcer Hypertension (Chronic) Obesity (Chronic) Osteoarthritis Sleep apnea no longer has after gastric bypass Smokeless tobacco use (Chronic) Surgical History H/O repair of left rotator cuff (Chronic) H/O repair of right rotator cuff (Chronic) History of arthroscopy of left shoulder (Chronic) History of arthroscopy of right shoulder (Chronic) History of esophagogastroduodenoscopy (EGD) History of gastric bypass (Chronic) History of tonsillectomy and adenoidectomy Family History Mother Family history of diabetes mellitus Hypertension Migraine headache Unknown Diabetes Prostate cancer Other No family history of adverse response to anesthesia Social History Preferred Language: Armenian Communication Ability: Effective Tie Buyer Required: No Beliefs That Will Affect Care: None Current Living Situation: Spouse Feels Safe at Home: Yes Smoking Status: Former smoker Tobacco Type: smokeless tobacco ; Do You Dip or Chew Tobacco: Yes (1 can/day) ; Second Hand Exposure: No ; Tobacco Cessation Education Requested by Patient: No Hx Alcohol Use: Yes Alcohol type: beer Hx Substance Use: No Review of Systems Review of Systems: 14 point review of systems completed and negative except as in HPI. Physical Exam Physical Exam: General Exam: GEN: NAD, sitting in chair. HEENT: No conjunctival injection, no rhinorrhea. CV: RRR, no peripheral edema PULM: Nonlabored respirations on room air. Neuro Exam: MS: Awake and Alert. Oriented to person, place, and date. Speech fluent and appropriate without dysarthria or paraphasic errors. Language intact including naming, comprehension, repetition. Cognition and memory grossly intact. Attention intact. No neglect. CN: Visual silva full. No extinction to double simultaneous stimuli. No optic disc edema on fundoscopic exam. PERRLA OU. EOMI without nystagmus. Facial sensation intact to LT. Facial muscles full and symmetric. Hearing intact to conversation. Uvula midline with symmetric palatal elevation. Shoulder shrug normal. Tongue midline. MOTOR: Normal bulk and tone. No pronator drift. BUE strength 5/5 at deltoids, biceps, triceps, wrist flexors and extensors, and finger flexors bilaterally. BLE strength 5/5 at iliopsoas, hamstrings, quadriceps, tibialis anterior, and gastrocnemius bilaterally. REFLEXES: 1+ at biceps, triceps, brachioradialis, 1+ patella and trace Achilles bilaterally. Flexor plantar responses bilaterally. SENSORY: Intact to LT without extinction to double simultaneous stimuli. Vibration and pinprick intact throughout. COORDINATION: No dysmetria or ataxia on [id number] and [id number] bilaterally. Normal Zuleyma bilaterally. GAIT: Normal gait and arm swing. Normal Romberg. Results & Data Vital Signs (Past 12 Hours) Vital Signs Temp Pulse Pulse Resp BP Pulse Ox 06/29/19 19:19 36.8 C 89 19 160/84 H 06/29/19 16:52 83 06/29/19 15:49 36.9 C 88 20 186/94 H 97 06/29/19 11:32 36.9 C 88 18 163/83 H 96 06/29/19 08:00 71 PG Care Time/CCT Total # of Minutes Spent Total Time Spent with Patient: Total time spent is greater than 50% in coordination of care (as documented) at patient's floor/unit and/or counseling patient:
[2019-06-29] MEDS: ENOXAPARIN INJ 40 MG/0.4 ML SYR SQ SCH (20:28)
[2019-06-29] MEDS ORDERED: lisinopriL 40 MG TAB PO SCH (22:55)
[2019-06-30] MEDS: PANTOprazole 40 MG TAB PO SCH (08:43)
[2019-06-30] MEDS: CHOLECALCIFEROL 1,000 UNITS TAB PO SCH (08:43)
[2019-06-30] MEDS: FOLIC ACID 1 MG in SYRINGE 9.8 ML IV SCH (08:44)
[2019-06-30] MEDS: THIAMINE HCL 100 MG in SYRINGE 9 ML IV SCH (08:44)
[2019-06-30] MEDS ORDERED: OPTIRAY 320 125ml IV PRN (09:19)
[2019-06-30 09:23] LABS: BUN Creatinine Ratio 9.6 (10-20); Est GFR (African American) 117.6; Est GFR (Non-African American) 101.4; Potassium 3.5 mmol/L (3.5-5.1)
--- NOTE | 2019-06-30 09:42 | CT Scan Report ---
CT ANGIOGRAPHY OF THE NECK WITH CONTRAST CLINICAL HISTORY: Seizure-like activity; R/O dissection COMPARISON STUDY: No previous studies for comparison. Technique: CT angiography of the carotid and vertebral arteries was obtained using Panizon 320 IV and 3D reconstruction on an independent workstation. NASCET criteria was utilized. Automated exposure c ontrol was utilized for the study. A dose lowering technique was utilized adhering to the principles of ALARA. CT DOSE: 651.46 mGy.cm Findings: Lung apices are unremarkable. There is no cervical lymphadenopathy. No cervical spine fract ure is noted. There is moderate calcified plaque within the proximal right internal carotid artery. T he vessel lumen measures 1.4 mm in caliber at site of narrowing. The distal right internal carotid ar daphne measures 3.4 mm. There is moderate calcified plaque within the proximal left internal carotid ar daphne. The vessel lumen measures 1.9 mm at site of narrowing and 3.1 mm distally. Right vertebral reza ry is unremarkable. Note is made of a suspected fenestration of the proximal intracranial portion of the left vertebral artery just proximal to the takeoff of the left posterior inferior cerebellar reza ry. The left vertebral artery is otherwise normal appearance. Small left lobe thyroid nodule is noted . A tiny right lobe nodule is noted. IMPRESSION: 1. 50-60% stenosis of the proximal bilateral internal carotid arteries due to calcified atherosclerot ic plaque. 2. 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 A short segment dissection coul d appear similar however is considered less likely. Electronically signed by: Donnie Russo M.D. 06/30/2019 9:40 AM
--- NOTE | 2019-06-30 09:48 | CT Scan Report ---
CTA ANGIOGRAPHY OF THE HEAD CLINICAL HISTORY: Seizure-like activity; R/O dissection COMPARISON STUDY: Head CT June 28, 2019. TECHNIQUE: Helical axial images of the head were obtained following uneventful intravenous administr ation of 119 cc of Optiray 320. Automated exposure control was utilized for the study. A dose lower ing technique was utilized adhering to the principles of ALARA. FINDINGS: No acute intracranial hemorrhage, midline shift or mass effect is present. Ventricular syst em is normal. The basilar cisterns are patent. There are no extra-axial collections. No intracranial aneurysm is identified. There is suspected fenestration of the proximal intracranial portion of the l eft vertebral artery. The dissection is considered less likely. There are no significant calvarial ab normalities. Orbits are unremarkable. No abrupt vessel cut off is identified. No intraluminal thrombu s is noted. IMPRESSION: 1. No intraluminal thrombus or intracranial aneurysm. 2. 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 A short segment dissection could appear similar but is considered less likely. Electronically signed by: Donnie Russo M.D. 06/30/2019 9:47 AM
[2019-06-30] MEDS ORDERED: lisinopriL 40 MG TAB PO ONE (13:45)
[2019-06-30 14:58] LABS: Lyme Ab IgG w/WB Rflx Negative (Negative)
[2019-06-30 14:59] LABS: Lyme Ab IgM w/WB Rflx Equivocal (Negative)
--- NOTE | 2019-06-30 15:59 | Discharge Summary ---
Date of Service June 30, 2019 Admission HPI Per Admitting Provider 58-year-old male presents after having a likely first-time seizure. Patient does not recall all the events but does recall shaking for a period of time and being confused. History is per family (not present during this H&P), thus via the patient's recollections of their account and the ED notes. - Patient notes that around 1330 today he had the sudden onset of some grunting, eye rolling, and then became unresponsive with generalized shaking. This lasted for a few minutes (exact time unknown) followed by a period of decreased responsiveness. In total lasted perhaps 15 minutes. Patient denies any tongue biting or bowel/bladder incontinence. He denies any vomiting as well. - No known history of the same. He denies any recent fevers or feeling of illness, head injuries, illicit drug use, or other suspected sources. Patient does have a history of alcohol abuse. On this H&P, he says he drinks about 6 beers per day. Per the ED's account, he drinks 12-15 beers per day. - At present, patient denies any symptoms at all. Specifically, he denies any headache, blurry vision, difficulty with speech or movement of his extremities, focal pain anywhere, or any emergent concerns. He says he is only here at the insistence of his family. - On review of systems, patient made mention that he takes hydrochlorothiazide for his blood pressure but says it also helps him urinate. 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 He also notes he had a history of hyperlipidemia, diabetes, sleep apnea, and obesity. He says all of these issues resolved after he underwent gastric bypass surgery around 2004. - Past medical history includes hypertension, hyperlipidemia, diabetes, sleep apnea, obesity, GERD, gastric ulcer, osteoarthritis, degenerative disc disease - Past surgical history includes gastric bypass, tonsillectomy and adenoidectomy, arthroscopy of bilateral shoulders, bilateral rotator cuff repairs - Social history includes prior cigar smoker. Drinks beer as noted above. Lives at home with . Principal Diagnosis Seizure-Like Activity; Possible TIA? Discharge Exam Constitutional WD/WN, vitals as above Eyes + anicteric sclerae ENMT Ears: no hearing impairment Neck trachea midline Respiratory normal respiratory effort, lungs clear to auscultation Cardiovascular RRR, no murmur, no edema Gastrointestinal (Abdomen) Inspection/Auscultation: normal bowel sounds Percussion/Palpation: abdomen soft; abdomen nontender large well healed midline abdominal incision that appears to have healed by secondary intention Musculoskeletal Head/Neck/Chest: normocephalic and head atraumatic Skin no rashes, warm and dry Neurologic moves all extremities and awake; no focal motor deficits Motor/Sensory: + tremor (Mild in bilateral hands) Psychiatric A+Ox3, euthymic affect Motor Behavior: + tremor (Mild in bilateral hands) Speech: normal rate/rhythm/volume of speech Affect: euthymic affect Discharge Data Allergies Allergy/AdvReac Type Severity Reaction Status Date / Time No Known Drug Allergies Allergy Unknown Verified 06/28/19 15:47 Consultations 06/28/19 17:04 ED Decision to Admit Stat 06/28/19 19:45 Consult Neurology Routine 06/30/19 14:06 Consult [facility] harness preparer Routine Ordered Studies 06/28/19 15:37 CT head/brain wo con Stat 06/30/19 08:07 CT angio head w con Routine 06/30/19 08:13 CT angio neck with con Routine Hospital Course (1) Seizure: -Possible seizure activity occurring on 06/28 -patient reports being in his normal state of health yesterday when he woke up but then experienced significant fatigue in which he then took a nap. Upon awakening he remembers still feeling pretty fatigued and sat down in a chair. He cannot recall further events but states his eyes rolled to the back of his head, he was gurgling, head spinning in circles, and arms shaking. She reports it taking approximately 15 minutes for him to be largely back to normal. Then per report patient stood up and began walking -No current seizure activity since hospitalized -does report significant alcohol intake and was approximately 12 hours out from this episode yesterday when this episode occurred; he is also noted to have hyponatremia however this was 126 on admission so low suspicion this was the underlying cause; no focal deficits appreciated; does report history of positive Lyme disease and states likely could have exposure but no other specific symptoms -Echo -EF greater than 70%, left ventricle is hyperdynamic, no regional wall motion abnormalities and no significant valvular pathology, and grade 1 diastolic dysfunction --Troponins negative x3 -History of sleep apnea which is noted to be cured since his gastric bypass - given presence of symptoms after he napped possible correlation? 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 Abernathy - recommending outpatient MRI (patient cannot do closed and would prefer outpatient) and EEG which Rxs given for studies with results to PCP/Neurologist -- She would like to F/U in 4-6 weeks -- Recommendation for event monitor but patient declined at this time - did advise to discuss with PCP/Neurologist about this - while inpatient he has remained in NSR/sinus tach with intermittent PVCs no other arrhythmias -Given findings on CTA do question possibility of CVA/TIA -as possibly the culprit for this questionable seizure-like activity -long discussions about this were had with patient and and information packets supplied --Did explain to the patient that MRI could be beneficial to further assess the brain but likely given symptom duration this could be a TIA but regardless treatment would be the same if this was a stroke -Start atorvastatin 80 mg daily and aspirin 81 mg daily (2) Alcohol abuse: -Patient reports approximately 12-15 beers a day and family concurs -He reports he has quit cold turkey in the past without seizure activity however states he was drinking significantly less at that time; patient understands that he needs to quit drinking at this time and is willing to stay in the hospital to assist with this however is not interested in rehab currently -He is interested in having resources available to him should he decide to get additional help -he states he plans to discuss with PCP as well -Minimal symptoms observed while hospitalized -patient has mild bilateral hand tremor which ultimately could be an element of essential tremor; mild anxiety only when asked; intermittent sinus tachycardia -Utilize Librium taper while hospitalized. Today is the last day for every 8 hour dosing. Therefore we will give Librium 10 mg x 1 dose this evening and instructed him to take 10 mg daily on Tuesday and Tuesday and finish Librium -Continue folic acid 1 mg daily and thiamine 100 mg daily -Last reported drink was midnight of 06/28 at midnight -patient is greater than 48 hours out from last drink appears to be doing well -Patient states that he has used nonalcoholic beer to assist with cessation in the past which seemed to help as he does admit to liking the taste of beer -did encourage patient that this can be acceptable but did express that if he feels this is ultimately being used as a coping mechanism that more help may be necessary from professionals (3) Hyponatremia: -NA 126 on admission and currently at 138 -likely combination of beer potomania and HCTZ use --Even though sodium was low unlikely this is the underlying culprit for this possible seizure activity -TSH within normal limits -of note CTA of the neck does reveal nodules on the right and left lobe of the thyroid and can be monitored -Advised patient to continue HCTZ at 12.5 mg daily and to have repeat labs when seen by PCP -likely can resume full dosing to help with BP control (4) Hypertension: -Continue HCTZ 12.5 mg daily currently until repeat labs obtained at follow-up; continue lisinopril 40 mg daily DVT prophylaxis: Lovenox 40 mg SC daily Disposition: --Outpatient MRI and EEG; follow-up with Dr. Abernathy from neurology in 4 to 6 weeks --Consideration for event monitor to assess for any arrhythmias -patient currently declined at this time and states he will discuss with PCP --Started atorvastatin and aspirin daily; will need continue monitoring given now known carotid stenosis --Continue HCTZ at 12.5 mg daily and repeat BMP during PCP visit and likely can resume regular dosing --TIA/stroke risk factor reduction --Monitoring and assistance with alcohol cessation Total Time Total Time Spent Total Time Spent (In Minutes): Greater than 30 minutes Discharge Plan Discharge Items Patient Disposition: Home - Self-Care Reason For Visit: SEIZURE, HYPONATREMIA, HYPOKALEMIA Discharge Diagnosis: Seizure-Like Activity vs Transient Ischemic Attack Activity: Resume your previous activity Non-emergency contact: Primary Care Provider Call non-emergency contact if: you have any medication questions, your symptoms worsen and you have a fever Follow-up/Referrals: Rosendo Mckeon DO [Primary Care Provider] - Diet: Heart Healthy Addtl Attending Provider Instructions: Seizure-Like Activity vs Transient Ischemic Attack vs Other: - We are not completely certain what this episode was. It is possible this was not a seizure but possibly a transient ischemic attack or TIA - A TIA is when a small blockage occurs in the blood vessels of the brain which then causes symptoms but then in less then 24 hours resolves. TIAs can put you at risk for having a stroke and therefore it is important to reduce risk factors - No strokes were found on your head CT. Your neck and head blood vessels were looked at which suggest a 50-60% stenosis (narrowing) of your internal carotids arteries which do feed blood to your brain. This is not at a level that would require surgery but should be monitored. - To help with this blockages you will be started on a cholesterol medication called atorvastatin. Usually this is tolerated very well but can cause some increased muscle pains/weakness. If this would occur stop this medication and talk to your doctor. Sometimes a different cholesterol medication or different dose could be used - The image also shows a blood vessel called the left vertebral artery which is up in the brain. It has an area that is called a fenestration which we talked about with the pictures on the day of discharge. The treatment for that will be a baby aspirin - The new medications will be Atorvastatin 80 mg daily and Aspirin 81 mg daily (can be bought over the counter) - Please see the handouts in regards to transient ischemic attacks and carotid stenosis to see how you can help control some risk factors to prevent further issues. - If episodes like this happen again or you have slurred words, facial dropping, weakness in arms/legs please call 911 - The neurologist does want to have follow-up testing to include an MRI to look at more details of the brain and to look and an EEG (electrical activity of the brain). This can be done as an outpatient. She would also like to see you in 3-4 weeks - Also consider a heart rate/rhythm monitor to just make sure there is not any irregular heart rhythms. You can discuss this with your family doctor if you change your mind on it - Also would talk with your family doctor and chiropracter given this new finding of carotid stenosis - You were seen by Dr. Abernathy during admission. The neurology office is at [address] [place] [address], [place] [address] and their number is [phone] if you have questions Alcohol: - Recommend to continue to not drink. Continue to focus on the goals you told me about and also allow your family to help you. You have a great support system, which many do not have, and that will make this process easier. It will be a moment by moment re-evaluation. With time it will get easier. - Recommend to utilize community resources such as AA or other groups. If the temptation becomes too strong I would encourage to seek inpatient rehab. As well, you can always come back to the hospital to help with withdrawal or stopping drinking. - Currently you do not exhibit signs of withdrawal which is great. You were started on a Librium taper to help prevent withdrawal. We will give you some to take once a day for the next 3 days to help prevent issues. -- You will need to take one tonight to finish the taper. Then take 10 mg once a day on Tuesday and Tuesday and you will be done - Again talk to your family doctor and reach out to those community resources. As well, continue to talk with your family about any issues you may have as you can see they really care. - Recommend to continue thiamine and folic acid as this can be low in ind ividuals who drink alcohol. These supplements are safe to use and are also beneficial to produce blood cells and all around good health Low Salt: - Your salt was 126 on admission. This is low but not too bad. This can be from drinking beer as well as your blood pressure/water pill. Recommend to continue the water pill at just half a dose for now and have your salt levels checked in your family office and likely you can go back on your normal dose. - It is unlikely the salt level was the cause of this event Pending Studies at Discharge: No Stand-Alone Forms: My [facility], Smoking Cessation Medications and DC Order Prescriptions: New chlordiazepoxide HCl 10 mg Capsule 10 mg PO DAILY 3 Days Qty: 3 RF: 0 thiamine HCl (vitamin B1) 100 mg tablet 100 mg PO DAILY 30 Days Qty: 30 RF: 0 folic acid 1 mg tablet 1 mg PO DAILY 30 Days Qty: 30 RF: 0 aspirin 81 mg tablet,delayed release (DR/EC) 81 mg PO DAILY 30 Days Qty: 30 RF: 0 atorvastatin 80 mg tablet 80 mg PO HS 30 Days Qty: 30 RF: 0 Continued cholecalciferol (vitamin D3) 1,000 unit capsule 1,000 units PO QAM RF: 0 omeprazole magnesium [Prilosec OTC] 20 mg tablet,delayed release (DR/EC) 20 mg PO QAM RF: 0 lisinopril 40 mg tablet 40 mg PO DAILY Qty: 90 RF: 1 multivitamin Tablet,Chewable 2 tab PO QAM RF: 0 Changed hydrochlorothiazide 25 mg tablet 12.5 mg PO DAILY Qty: 90 RF: 1 Discharge Orders: Discharge Order (Routine); Ordered 06/30/19 Ordered By: Yeny Blanchard/Other Patient Handouts: TIA, Blockage Carotid Artery, Attack Transient Ischemic Dc Admission Data Admit Date/Time: 06/28/19 18:28 Attending Provider: Maile Baltazar Admit Provider: Lito Lin Primary Care Provider: Rosendo Mckeon Other Providers: Lito Lin ; Valarie Abernathy Other Interventions: Discharge Summary Assessment (RN) Last Done: 06/30/19 13:55 DC Date/Time DO NOT enter until pt leaves facility: 06/30/19 14:45 Supervising Physician Co-Signing Physician Notes I have seen and examined pt with Yeny Rodarte PA-C and agree with assessment and plan and discharge summary. PE: General Appearance: not in acute distress Eyes: normal Sclerae, extraocular muscle intact ENT: hearing grossly normal Neck: supple Respiratory/Chest: normal air entry bilateral ,no respiratory distress, no accessory muscle use Cardiovascular: regular rate, rhythm, no murmur Abdomen: non tender, soft, no masses Extremities: no edema Musculoskeletal: full ROM , no joint swelling , no pedal edema. Neurologic/Psychiatric: Awake alert oriented times place and person moves all extremities sensation intact cranial nerves II-12 appear to be intact Skin: normal color, warm/dry, no rash
[2019-07-04 05:09] LABS: 18KDIGG Band REACTIVE; 23KDIGG Band REACTIVE; 23KDIGM Band REACTIVE; 28KDIGG Band NON-REACTIVE; 30KDIGG Band NON-REACTIVE; 39KDIGG Band REACTIVE; 39KDIGM Band NON-REACTIVE; 41KDIGG Band REACTIVE; 41KDIGM Band NON-REACTIVE; 45KDIGG Band REACTIVE; 58KDIGG Band REACTIVE; 66KDIGG Band NON-REACTIVE; 93KDIGG Band NON-REACTIVE; Lyme Antibodies, WB IgG POSITIVE (NEGATIVE); Lyme Antibodies, WB IgM NEGATIVE (NEGATIVE)
--- NOTE | 2019-07-06 12:37 | Coding Query ---
CODING QUERY To promote full compliance with coding requirements relating to patient care, provider participation is requested in all cases of phys asst uncertainty. Please assist us with the question(s) below: Coding Question(s): 1. The Discharge Summary Documents possible CVA/TIA in the Hospital Course and Possible TIA in the Principal Diagnosis area. Please clarify below, in your clinical opinion. ( ) Possible TIA, No CVA ( ) Possible TIA or Possible CVA ( ) Other: Please Specify 2. There is documentation of bilateral ICA Stenosis due to calcified atherosclerotic plaques. If TIA is possible in the question above, please specify below, in your clinical opinion. ( ) TIA is likely due to ICA Stenosis ( ) TIA is Not likely due to ICA Stenosis ( ) Other: Please Specify Physician's Response(s):1. Possible TIA or Possible CVA 2.( ) TIA is likely due to ICA Stenosis Thank you Eve Chapin Principal Diagnosis: "that condition established after study, to be chiefly responsible for occasioning the admission of the patient to the hospital for care." Co-Existing Principal Diagnosis: "when two or more diagnoses equally meet the criteria for principal diagnosis as determined by the circumstances of admission, diagnostic work up, and/or therapy provided, and the Alphabetic Index, Tabular List, or another coding guideline does not provide sequencing direction, any one of the diagnoses may be sequenced first." "When the physician has documented what appears to be a current diagnosis in the body of the record, but has not included the diagnosis in the final diagnostic statement, the physician should be asked whether the diagnosis should be added." (Source Coding Clinic 2 QTR90. p3-4) CASEYD
== END 2019-06-30 14:45 | disposition home or self-care (01) | DRG 68 ==
LOC: ED 14:38 → 2W 18:28 → SUATTDRO 18:28 → 2W 19:30

== ENCOUNTER 2021-07-29 14:49 | Inpatient (IN) ==
[2021-07-29 16:10] LABS: Basophils # (auto) 0.01 K/uL (0-0.2); Basophils % (auto) 0.2 %; Eosinophils # (auto) 0.01 K/uL (0-0.5); Eosinophils % (auto) 0.2 %; Hematocrit (blood only) 42.3 % (42-52); Hemoglobin 14.9 g/dL (14.0-18.0); Immature Granulocytes # (auto) 0.01 K/uL (0.00-0.02); Immature Granulocytes % (auto) 0.2 %; Lymphocytes # (auto) 1.36 K/uL (1.2-3.4); Lymphocytes % (auto) 26.8 %; Mean Corpuscular Hemoglobin 34.7 pg (25-34); Mean Corpuscular Hgb Conc 35.2 g/dL (32-36); Mean Corpuscular Volume 98.6 fL (80-100); Mean Platelet Volume 9.9 fL (7.4-10.4); Monocytes # (auto) 0.38 K/uL (0.11-0.59); Monocytes % (auto) 7.5 %; Neutrophils # (auto) 3.31 K/uL (1.4-6.5); Neutrophils % (auto) 65.1 %; Platelet Count 251 K/uL (130-400); RDW Coefficient of Variation 13.2 % (11.5-14.5); RDW Standard Deviation 47.7 fL (36.4-46.3); Red Blood Count 4.29 M/uL (4.7-6.1); White Blood Count 5.08 K/uL (4.8-10.8)
--- NOTE | 2021-07-29 16:18 | Emergency Department Note ---
History of Present Illness General Chief complaint: Illness Stated complaint: PSBLE ALCOHOL WITHDRAWAL, DIZZY, CLAMMY Time Seen by Provider: 07/29/21 16:01 History of Present Illness This is a 60-year-old male that presents to the emergency department via private vehicle accompanied by with complaints of "tired, weakness, decreased appetite, chills". The patient states that he has had intermittent symptoms since this past June. He states that he at times will feel chilled. He also feels overall weak. He denies any unilateral weakness or speech trouble/focal weakness. He states that he was in a building that had some "black mold" and this was in early June of this past year. Upon leaving the building he noted he had some vomiting. He questions if perhaps this could be the cause of some of his symptoms. He states that he continues to have decreased appetite, decreased oral intake, overall feeling weak and chills. He notes a recent chiropractic manipulation to include the neck. 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 She notes that earlier today he attempted to get out of a chair but seem to have difficulty in doing so and was worried therefore prompting arrival here today. Patient does note that also this past Tuesday and Tuesday he slipped on ice. He notes overall soreness from this. He denies striking the head or loss of consciousness. Patient also notes regular alcohol use but has not had any alcohol over the past 2 days. Patient does note a history of abdominal surgeries as well but denies any abdominal pain at this time. No chest pain or shortness of breath. No headache. Home Medications Medication Instructions Recorded Confirmed Type cholecalciferol (vitamin D3) 25 1,000 units PO QAM 08/22/18 07/29/21 History mcg (1,000 unit) capsule omeprazole magnesium 20 mg 20 mg PO QAM 08/22/18 07/29/21 History tablet,delayed release (Prilosec OTC) multivitamin 2 tab PO QAM 09/01/18 07/29/21 History hydroxyzine HCl 25 mg tablet 25 mg PO TID PRN #30 tab 04/28/20 07/29/21 Rx folic acid 1 mg tablet 1 mg PO DAILY #90 tab 08/22/20 07/29/21 Rx atorvastatin 80 mg tablet 80 mg PO HS #90 tab 11/03/20 07/29/21 Rx sildenafil 50 mg tablet 50 mg PO DAILY #30 tab 02/03/21 07/29/21 Rx clopidogrel 75 mg tablet 75 mg PO DAILY #90 tab 04/13/21 07/29/21 Rx hydrochlorothiazide 25 mg tablet 12.5 mg PO DAILY #90 tab 04/13/21 07/29/21 Rx lisinopril 40 mg tablet See Rx Instructions .ROUTE 07/06/21 07/29/21 Rx .COMPLEX #90 tab adalimumab 40 mg/0.4 mL See Rx Instructions SUBCUT .COMPLEX 07/13/21 07/29/21 History subcutaneous syringe kit (Humira(CF)) cyanocobalamin (vitamin B-12) 500 mcg PO DAILY cap 07/13/21 07/29/21 History 1,000 mcg capsule Allergies Allergy/AdvReac Type Severity Reaction Status Date / Time No Known Drug Allergies Allergy Unknown Verified 07/29/21 17:15 Past Med/Surg History Medical History Cardiac murmur no recovery room rn Degenerative disc disease Diabetes mellitus no longer has after gastric bypass Dyslipidemia GERD (gastroesophageal reflux disease) History of gastric ulcer History of Lyme disease Hypertension Hypokalemia Hyponatremia Obesity Osteoarthritis Sleep apnea no longer has after gastric bypass Smokeless tobacco use Surgical History H/O repair of left rotator cuff H/O repair of right rotator cuff History of arthroscopy of left shoulder History of arthroscopy of right shoulder History of bowel resection History of esophagogastroduodenoscopy (EGD) History of gastric bypass History of tonsillectomy and adenoidectomy Family History Mother Family history of diabetes mellitus Hypertension Migraine headache Unknown Diabetes Prostate cancer Grandmother Myocardial infarction Grandfather Myocardial infarction Other No family history of adverse response to anesthesia Denies family history of Ovarian cancer Breast cancer Colorectal cancer Social History Smoking Status: Former smoker Second Hand Exposure: No; Hx Alcohol Use: Yes Alcohol type: beer Hx Substance Use: No Preferred Language: Armenian Communication Ability: Effective Director Public Policy Required: No Beliefs That Will Affect Care: None marital status: Current Living Situation: Spouse Other Information That Helps Us Care for You: No Feels Safe at Home: Yes Safety Concerns: Feels Safe At This Time Assistive Devices: None Review of Systems A total of 10 systems reviewed and were otherwise negative Physical Exam Vital Signs Vital Signs - 24 hr 07/29/21 15:01 07/29/21 16:37 07/29/21 17:30 Temperature 36.5 C Temperature Source Temporal Artery Scan Pulse Rate 94 H Pulse Rate [Radial] 73 70 Pulse Rhythm Regular Pulse Rhythm [Radial] Regular Regular Pulse Strength Normal Pulse Strength [Radial] Normal Normal Respiratory Rate 20 16 20 Respiratory Effort / Characteristics Non-Labored Spontaneous Non-Labored Spontaneous Non-Labored Respiratory Depth Normal Normal Normal Respiratory Pattern Regular Regular Blood Pressure 103/74 Blood Pressure [Right Arm] 127/79 137/72 Blood Pressure Mean 83 Blood Pressure Mean [Right Arm] 95 93 Blood Pressure Position Sitting Blood Pressure Position [Right Arm] Lying Lying Pulse Oximetry 96 98 98 Oxygen Delivery Method Room Air Room Air Room Air Sepsis Recent Fever Within 48 Hours No Sepsis New/Unexplained Change in Mental Status No Sepsis Action Taken by Nursing No Action Required 07/29/21 19:00 Temperature Temperature Source Pulse Rate Pulse Rate [Radial] 74 Pulse Rhythm Pulse Rhythm [Radial] Regular Pulse Strength Pulse Strength [Radial] Normal Respiratory Rate 18 Respiratory Effort / Characteristics Non-Labored Spontaneous Respiratory Depth Normal Respiratory Pattern Regular Blood Pressure Blood Pressure [Right Arm] 136/79 Blood Pressure Mean Blood Pressure Mean [Right Arm] 98 Blood Pressure Position Blood Pressure Position [Right Arm] Semi-fowlers Pulse Oximetry 96 Oxygen Delivery Method Room Air Sepsis Recent Fever Within 48 Hours Sepsis New/Unexplained Change in Mental Status Sepsis Action Taken by Nursing VITAL SIGNS - Vital signs and nursing notes were reviewed. Stable and afebrile. GENERAL -60-year-old male appearing his stated age who is in no acute distress. Communicates well with provider and answers questions appropriately. SKIN - Without rashes. No meningeal or petechial rash. HEAD - NC/AT. EYES - PERRL with EOMI bilaterally. Sclera anicteric. EARS - No deformities of external structures noted on gross examination bilaterally. NOSE - Midline and without cyanosis. No epistaxis or purulent drainage noted. Septum midline without deviation or septal hematoma noted. MOUTH/OROPHARYNX - Without perioral cyanosis. Buccal mucosa pink and moist and without leukoplakia. Tongue midline with equal elevation of palate bilaterally. No tonsillar hypertrophy, erythema, or exudates noted. Good dentition noted. NECK - Neck with FROM. Supple to palpation. No lymphadenopathy noted. No nuchal rigidity. LUNGS - Chest wall symmetric without accessory muscle use, intercostals retractions, or central cyanosis. Normal vesicular breath sounds CTA B/L. No wheezes, rales, or rhonchi appreciated. CARDIAC - RRR with S1/S2. No murmur, rubs, or gallops appreciated. ABDOMEN - Abdominal contour normal without pulsations or visible masses. BS normoactive all four quadrants. Midline abdominal surgical incisional scar noted. No evidence of recent surgery.No tenderness, palpable masses, hepatosplenomegaly, or ascites noted. EXTREMITIES - No clubbing or peripheral cyanosis. +5/5 strength noted in UE/LE bilaterally. NEUROLOGIC - Cranial nerves II through XII grossly intact. Sensory intact to light touch throughout. No focal deficit. PSYCH - A&Ox3 and cooperates fully with examiner. Pt is very pleasant and interacts well with examiner. Course Administered Medications Atorvastatin Calcium (Atorvastatin 40 Mg Tab) 80 mg PO HS MIGUE Stop: 08/28/21 21:59 Last Admin: 07/29/21 22:32 Dose: 80 mg Documented by: [id number] Enoxaparin Sodium (Enoxaparin Inj 40 Mg/0.4 Ml Syr) 40 mg SQ Q24H MIGUE Stop: 08/28/21 21:59 Last Admin: 07/29/21 22:32 Dose: 40 mg Documented by: [id number] Discontinued Medications Thiamine HCl 300 mg/ Sodium (Chloride) 53 mls @ 212 mls/hr IV NOW STA Stop: 07/29/21 19:43 Last Infusion: 07/29/21 21:18 Dose: 0 mls/hr Documented by: [id number] Admin: 07/29/21 21:01 Dose: 212 mls/hr Documented by: [id number] Ioversol (Optiray 320 125ml) 119 ml IV ONCE ONE Stop: 07/29/21 17:13 Last Admin: 07/29/21 17:12 Dose: 119 ml Documented by: [id number] Lorazepam (Lorazepam 1 Mg Tab) 1 mg PO ONE PRN; Protocol PRN Reason: EtoH Withdrawal AWSS 6-10 Last Admin: 07/29/21 22:33 Dose: 1 mg Documented by: [id number] Medical Decision Making Laboratory Data Result diagrams: 07/29/21 15:57 07/29/21 15:57 Lab Results 07/29/21 07/29/21 07/29/21 Range/Units 15:57 15:57 16:19 WBC 5.08 (4.8-10.8) K/uL RBC 4.29 L (4.7-6.1) M/uL Hgb 14.9 (14.0-18.0) g/dL Hct 42.3 (42-52) % MCV 98.6 (80-100) fL MCH 34.7 H (25-34) pg MCHC 35.2 (32-36) g/dL RDW Std Deviation 47.7 H (36.4-46.3) fL RDW Coeff of Cherelle 13.2 (11.5-14.5) % Plt Count 251 (130-400) K/uL MPV 9.9 (7.4-10.4) fL Immature Gran % (Auto) 0.2 % Neut % (Auto) 65.1 % Lymph % (Auto) 26.8 % Boundary % (Auto) 7.5 % Eos % (Auto) 0.2 % Baso % (Auto) 0.2 % Neut # (Auto) 3.31 (1.4-6.5) K/uL Lymph # (Auto) 1.36 (1.2-3.4) K/uL Boundary # (Auto) 0.38 (0.11-0.59) K/uL Eos # (Auto) 0.01 (0-0.5) K/uL Baso # (Auto) 0.01 (0-0.2) K/uL Immature Gran # (Auto) 0.01 (0.00-0.02) K/uL PT (9.0-12.0) Seconds INR (0.9-1.1) APTT (21.0-31.0) Seconds PTT Ratio Sodium 127 L (136-145) mmol/L Potassium 3.8 (3.5-5.1) mmol/L Chloride 90 L (98-107) mmol/L Carbon Dioxide 26 (21-32) mmol/L Anion Gap 11 (3-11) BUN 6 (6-23) mg/dl Creatinine 0.57 L (0.6-1.4) mg/dl Est Cr Clr Drug Dosing 158.4 ml/min Est GFR ( Amer) 131.2 ml/min Est GFR (Non-Af Amer) 113.2 ml/min BUN/Creatinine Ratio 10.5 (10-20) Glucose 102 H (70-99) mg/dl Osmolality (280-300) mOsm/kg Calcium 8.2 L (8.5-10.1) mg/dl Magnesium 2.1 (1.7-2.4) mg/dl Total Bilirubin 1.3 H (0.2-1.0) mg/dl AST 105 H (13-39) U/L ALT 55 H (7-52) U/L Alkaline Phosphatase 72 (34-104) U/L Troponin I < 0.03 (0-0.04) ng/ml Total Protein 6.9 (6.0-8.3) gm/dl Albumin 4.2 (3.4-5.0) gm/dl Globulin 2.7 (2.5-4.0) gm/dl Albumin/Globulin Ratio 1.6 (0.9-2) Lipase 25 (11-82) U/L TSH (0.300-4.500) uIu/ml Urine Color Urine Appearance (Clear) Urine pH (4.5-7.5) Ur Specific [place] (1.000-1.030) Urine Protein (Negative) Urine Glucose (UA) (Negative) Urine Ketones (Negative) Urine Blood (Negative) Urine Nitrite (Negative) Urine Bilirubin (Negative) Urine Urobilinogen (Negative) Ur Leukocyte Esterase (Negative) Lyme Disease IgG Ab (Negative) Lyme Disease IgM Ab (Negative) SARS-CoV-2, RNA, NAAT (NEGATIVE) 07/29/21 07/29/21 07/29/21 Range/Units 16:30 16:30 16:30 WBC (4.8-10.8) K/uL RBC (4.7-6.1) M/uL Hgb (14.0-18.0) g/dL Hct (42-52) % MCV (80-100) fL MCH (25-34) pg MCHC (32-36) g/dL RDW Std Deviation (36.4-46.3) fL RDW Coeff of Cherelle (11.5-14.5) % Plt Count (130-400) K/uL MPV (7.4-10.4) fL Immature Gran % (Auto) % Neut % (Auto) % Lymph % (Auto) % Bound[place] % (Auto) % Eos % (Auto) % Baso % (Auto) % Neut # (Auto) (1.4-6.5) K/uL Lymph # (Auto) (1.2-3.4) K/uL Bound[place] # (Auto) (0.11-0.59) K/uL Eos # (Auto) (0-0.5) K/uL Baso # (Auto) (0-0.2) K/uL Immature Gran # (Auto) (0.00-0.02) K/uL PT 9.9 (9.0-12.0) Seconds INR 1.0 (0.9-1.1) APTT 28.0 (21.0-31.0) Seconds PTT Ratio 1.1 Sodium (136-145) mmol/L Potassium (3.5-5.1) mmol/L Chloride (98-107) mmol/L Carbon Dioxide (21-32) mmol/L Anion Gap (3-11) BUN (6-23) mg/dl Creatinine (0.6-1.4) mg/dl Est Cr Clr Drug Dosing ml/min Est GFR ( Amer) ml/min Est GFR (Non-Af Amer) ml/min BUN/Creatinine Ratio (10-20) Glucose (70-99) mg/dl Osmolality (280-300) mOsm/kg Calcium (8.5-10.1) mg/dl Magnesium (1.7-2.4) mg/dl Total Bilirubin (0.2-1.0) mg/dl AST (13-39) U/L ALT (7-52) U/L Alkaline Phosphatase (34-104) U/L Troponin I (0-0.04) ng/ml Total Protein (6.0-8.3) gm/dl Albumin (3.4-5.0) gm/dl Globulin (2.5-4.0) gm/dl Albumin/Globulin Ratio (0.9-2) Lipase (11-82) U/L TSH 1.332 (0.300-4.500) uIu/ml Urine Color Urine Appearance (Clear) Urine pH (4.5-7.5) Ur Specific [place] (1.000-1.030) Urine Protein (Negative) Urine Glucose (UA) (Negative) Urine Ketones (Negative) Urine Blood (Negative) Urine Nitrite (Negative) Urine Bilirubin (Negative) Urine Urobilinogen (Negative) Ur Leukocyte Esterase (Negative) Lyme Disease IgG Ab Negative (Negative) Lyme Disease IgM Ab Equivocal A (Negative) SARS-CoV-2, RNA, NAAT (NEGATIVE) 07/29/21 07/29/21 07/29/21 Range/Units 16:30 16:39 17:31 WBC (4.8-10.8) K/uL RBC (4.7-6.1) M/uL Hgb (14.0-18.0) g/dL Hct (42-52) % MCV (80-100) fL MCH (25-34) pg MCHC (32-36) g/dL RDW Std Deviation (36.4-46.3) fL RDW Coeff of Cherelle (11.5-14.5) % Plt Count (130-400) K/uL MPV (7.4-10.4) fL Immature Gran % (Auto) % Neut % (Auto) % Lymph % (Auto) % Boundary % (Auto) % Eos % (Auto) % Baso % (Auto) % Neut # (Auto) (1.4-6.5) K/uL Lymph # (Auto) (1.2-3.4) K/uL Bound[place] # (Auto) (0.11-0.59) K/uL Eos # (Auto) (0-0.5) K/uL Baso # (Auto) (0-0.2) K/uL Immature Gran # (Auto) (0.00-0.02) K/uL PT (9.0-12.0) Seconds INR (0.9-1.1) APTT (21.0-31.0) Seconds PTT Ratio Sodium (136-145) mmol/L Potassium (3.5-5.1) mmol/L Chloride (98-107) mmol/L Carbon Dioxide (21-32) mmol/L Anion Gap (3-11) BUN (6-23) mg/dl Creatinine (0.6-1.4) mg/dl Est Cr Clr Drug Dosing ml/min Est GFR ( Amer) ml/min Est GFR (Non-Af Amer) ml/min BUN/Creatinine Ratio (10-20) Glucose (70-99) mg/dl Osmolality 317 H (280-300) mOsm/kg Calcium (8.5-10.1) mg/dl Magnesium (1.7-2.4) mg/dl Total Bilirubin (0.2-1.0) mg/dl AST (13-39) U/L ALT (7-52) U/L Alkaline Phosphatase (34-104) U/L Troponin I (0-0.04) ng/ml Total Protein (6.0-8.3) gm/dl Albumin (3.4-5.0) gm/dl Globulin (2.5-4.0) gm/dl Albumin/Globulin Ratio (0.9-2) Lipase (11-82) U/L TSH (0.300-4.500) uIu/ml Urine Color [place] Urine Appearance Clear (Clear) Urine pH 5.0 (4.5-7.5) Ur Specific [place] 1.010 (1.000-1.030) Urine Protein Negative (Negative) Urine Glucose (UA) Negative (Negative) Urine Ketones Trace H (Negative) Urine Blood Negative (Negative) Urine Nitrite Negative (Negative) Urine Bilirubin Negative (Negative) Urine Urobilinogen Negative (Negative) Ur Leukocyte Esterase Negative (Negative) Lyme Disease IgG Ab (Negative) Lyme Disease IgM Ab (Negative) SARS-CoV-2, RNA, NAAT NEGATIVE (NEGATIVE) Imaging Data Radiologist's Impression: Head CTA 07/29/21 16:14 CT angio neck with con, CT angio head wo/w CLINICAL HISTORY: 60 years-old Male with hx vert artery dissection, now dizziness, falls. Acute neck pain with dizziness and prior fall. 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 COMPARISON STUDY: CTA neck 03/19/2020, CTA head 06/30/2019 TECHNIQUE: Following the IV administration of 119 mL of Optiray, CT angiogram of the head and neck was performed from the aortic arch to the skull apex. Images are reviewed in the axial, sagittal, and coronal planes. 3-D MIPS images are created and assessed. IV contrast was administered without complication. All measurements were calculated based on NASCET criteria. Noncontrast head CT was also obtained. A dose lowering technique was utilized adhering to the principles of ALARA. CT DOSE: 1667.32 mGy.cm FINDINGS: CT HEAD: Mild involutional changes. No acute intracranial hemorrhage, midline shift, abnormal extra-axial collection, hydrocephalus, acute territorial infarct or intracranial mass. No acute calvarial fracture. The mastoid air cells, middle ear cavities and paranasal sinuses appear clear. Unremarkable soft tissues and orbits. CTA HEAD AND NECK: Three-vessel morphology of the thoracic aortic arch. There is patency of the innominate and imaged subclavian arteries. The common carotid arteries are widely patent. There is atherosclerotic plaque of the carotid bulbs and proximal cervical segments of the internal carotid arteries bilaterally. There is approximately 50% stenosis of the proximal cervical segments of the internal carotid arteries bilaterally which is unchanged. The middle and anterior cerebral arteries appear patent. Codominant and patent vertebral arteries. There is suggested administration of the V4 segment left vertebral artery which is unchanged. No aneurysm, dissection, high-grade stenosis or arterial occlusion identified. The basilar and posterior cerebral arteries appear patent. The cerebral venous sinuses appear patent. There is no abnormal intracranial enhancement. The lung apices are clear. There is no pneumothorax. Bilateral thyroid nodules measure up to 10 mm on the left. Unremarkable soft tissues. Degenerative changes of the cervical spine. IMPRESSION: 1. No acute intracranial abnormality. 2. Atherosclerotic plaque of the carotid bulbs results in unchanged 50% stenosis of the proximal cervical segments of the internal carotid arteries bilaterally. 3. 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 ACT 112: Negative or not required by law. The above report was generated using voice recognition software. It may contain grammatical, syntax or spelling errors. Electronically signed by: Alvaro Murrieta M.D. 07/29/2021 5:48 PM Neck CTA 07/29/21 16:14 CT angio neck with con, CT angio head wo/w CLINICAL HISTORY: 60 years-old Male with hx vert artery dissection, now dizziness, falls. Acute neck pain with dizziness and prior fall. 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 COMPARISON STUDY: CTA neck 03/19/2020, CTA head 06/30/2019 TECHNIQUE: Following the IV administration of 119 mL of Optiray, CT angiogram of the head and neck was performed from the aortic arch to the skull apex. Images are reviewed in the axial, sagittal, and coronal planes. 3-D MIPS images are created and assessed. IV contrast was administered without complication. All measurements were calculated based on NASCET criteria. Noncontrast head CT was also obtained. A dose lowering technique was utilized adhering to the principles of ALARA. CT DOSE: 1667.32 mGy.cm FINDINGS: CT HEAD: Mild involutional changes. No acute intracranial hemorrhage, midline shift, abnormal extra-axial collection, hydrocephalus, acute territorial infarct or intracranial mass. No acute calvarial fracture. The mastoid air cells, middle ear cavities and paranasal sinuses appear clear. Unremarkable soft tissues and orbits. CTA HEAD AND NECK: Three-vessel morphology of the thoracic aortic arch. There is patency of the innominate and imaged subclavian arteries. The common carotid arteries are wid beatris patent. There is atherosclerotic plaque of the carotid bulbs and proximal cervical segments of the internal carotid arteries bilaterally. There is approximately 50% stenosis of the proximal cervical segments of the internal carotid arteries bilaterally which is unchanged. The middle and anterior cerebral arteries appear patent. Codominant and patent vertebral arteries. There is suggested administration of the V4 segment left vertebral artery which is unchanged. No aneurysm, dissection, high-grade stenosis or arterial occlusion identified. The basilar and posterior cerebral arteries appear patent. The cerebral venous sinuses appear patent. There is no abnormal intracranial enhancement. The lung apices are clear. There is no pneumothorax. Bilateral thyroid nodules measure up to 10 mm on the left. Unremarkable soft tissues. Degenerative changes of the cervical spine. IMPRESSION: 1. No acute intracranial abnormality. 2. Atherosclerotic plaque of the carotid bulbs results in unchanged 50% stenosis of the proximal cervical segments of the internal carotid arteries bilaterally. 3. 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 ACT 112: Negative or not required by law. The above report was generated using voice recognition software. It may contain grammatical, syntax or spelling errors. Electronically signed by: Alvaro Murrieta M.D. 07/29/2021 5:48 PM Chest X-Ray 07/29/21 16:15 XR chest 1V portable CLINICAL HISTORY: recent falls, dizziness TECHNIQUE: Single frontal radiograph of the chest was obtained. Comparison: Comparison is made to chest one view 06/28/2019 FINDINGS: No lines and tubes are seen. The cardiomediastinal silhouette is normal. The lungs are clear. No evidence of pleural effusion or pneumothorax. IMPRESSION: No acute chest disease. ACT 112: Negative or not required by law. Electronically signed by: Doug Schmidt M.D. 07/29/2021 4:33 PM [facility] Narrative Patient was seen and evaluated as above in room C06. Review was performed of nursing notes and vital signs. I did review pertinent previous visits and patient history. After obtaining a thorough history and physical examination the above work up was performed. Patient presents to us today with several symptoms. Overall he is feeling weak, tired, decreased appetite in the setting of chronic alcohol use. Patient does have a history of gastric bypass of which he notes had several complications in the past. He denies any abdominal pain. No chest pain or shortness of breath. Vital signs stable. He clinically appears well. No deficits. Options of care were discussed with the patient as well as at bedside. IV access was established. Labs were drawn. Chest x-ray negative. CTA was obtained of the head and neck and felt to be warranted noting the patient's past medical history, recent chiropractic manipulation and symptoms at the present time. It is felt that the benefit outweighs the risk. Results of the CTA as above. This is essentially unchanged. EKG was obtained and reveals normal sinus rhythm at a rate of 70 bpm. QTc 416. QRS 84. No ST elevation. Labs reveal no leukocytosis or concerning anemia. Hyponatremia 127 but will note he has had similar values in the past. No evidence of kidney failure. Mild elevation of AST as well as ALT with T bili 1.3. Coags are normal. Urinalysis negative. Lyme IgM equivocal. COVID testing negative. I will note that he has had equivocal Lyme IgM previously. Hyponatremia certainly may be secondary to patient's underlying decreased oral intake and alcohol use at home however given the patient's symptoms at the prese nt time. With his decreased food and fluid intake and overall feeling unwell do believe that further evaluation and management in the inpatient setting is warranted. Case discussed with the hospitalist. Please refer to further documentation regarding his stay. Case was discussed with the attending physician. GCS: 15 In the evaluation and treatment of this patient the following differential d iagnoses were entertained: Dissection, CVA, TIA, electrolyte disturbance, MA, PE, among others. Impression & Plan Hyponatremia Discharge Plan Visit Data Chief Complaint: Illness Stated Complaint: PSBLE ALCOHOL WITHDRAWAL, DIZZY, CLAMMY ED Provider: Lito Ruiz ED Midlevel Provider: Michael Olivia Discharge Problem: Hyponatremia Patient Disposition: Admitted As Inpatient Condition: Good Discharge Instructions Interventions: ED Discharge Assessment Last Done: 07/29/21 21:24
--- NOTE | 2021-07-29 16:34 | XRay Report ---
XR chest 1V portable CLINICAL HISTORY: recent falls, dizziness TECHNIQUE: Single frontal radiograph of the chest was obtained. Comparison: Comparison is made to chest one view 06/28/2019 FINDINGS: No lines and tubes are seen. The cardiomediastinal silhouette is normal. The lungs are clear. No evid ence of pleural effusion or pneumothorax. IMPRESSION: No acute chest disease. ACT 112: Negative or not required by law. Electronically signed by: Doug Schmidt M.D. 07/29/2021 4:33 PM
[2021-07-29 16:38] LABS: Albumin Globulin Ratio 1.6 (0.9-2); Albumin Level 4.2 gm/dl (3.4-5.0); BUN Creatinine Ratio 10.5 (10-20); Bilirubin,Total 1.3 mg/dl (0.2-1.0); Calcium 8.2 mg/dl (8.5-10.1); Creatinine Clr Calc Pharmacy 158.4 ml/min; Est GFR (African American) 131.2 ml/min; Est GFR (Non-African American) 113.2 ml/min; Globulin 2.7 gm/dl (2.5-4.0); Potassium 3.8 mmol/L (3.5-5.1); Total Protein 6.9 gm/dl (6.0-8.3)
[2021-07-29 16:53] LABS: Partial Thromboplastin Ratio 1.1; Prothrombin Time 9.9 Seconds (9.0-12.0)
[2021-07-29] MEDS ORDERED: OPTIRAY 320 125ml IV ONE (17:12)
[2021-07-29 17:17] LABS: Lipase 25 U/L (11-82); Magnesium 2.1 mg/dl (1.7-2.4)
[2021-07-29 17:32] LABS: Troponin I < 0.03 ng/ml (0-0.04)
[2021-07-29 17:48] LABS: Appearance Urine Clear (Clear); Bilirubin Urine Negative (Negative); Blood Urine Negative (Negative); Color Urine Orange; Glucose Urine UA Negative (Negative); Ketones Urine Trace (Negative); Leukocyte Esterase Urine Negative (Negative); Nitrite Urine Negative (Negative); Protein Urine Negative (Negative); Urobilinogen Urine Negative (Negative)
--- NOTE | 2021-07-29 17:50 | CT Scan Report ---
CT angio neck with con, CT angio head wo/w CLINICAL HISTORY: 60 years-old Male with hx vert artery dissection, now dizziness, falls. Acute ne ck pain with dizziness and prior fall. 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 COMPARISON STUDY: CTA neck 03/19/2020, CTA head 06/30/2019 TECHNIQUE: Following the IV administration of 119 mL of Optiray, CT angiogram of the head and neck wa s performed from the aortic arch to the skull apex. Images are reviewed in the axial, sagittal, and c oronal planes. 3-D MIPS images are created and assessed. IV contrast was administered without complic ation. All measurements were calculated based on NASCET criteria. Noncontrast head CT was also obtain ed. A dose lowering technique was utilized adhering to the principles of ALARA. CT DOSE: 1667.32 mGy.cm FINDINGS: CT HEAD: Mild involutional changes. No acute intracranial hemorrhage, midline shift, abnormal extra-axial ivan ection, hydrocephalus, acute territorial infarct or intracranial mass. No acute calvarial fracture. T he mastoid air cells, middle ear cavities and paranasal sinuses appear clear. Unremarkable soft tissu es and orbits. CTA HEAD AND NECK: Three-vessel morphology of the thoracic aortic arch. There is patency of the innominate and imaged goyal bclavian arteries. The common carotid arteries are widely patent. There is atherosclerotic plaque of the carotid bulbs and proximal cervical segments of the internal carotid arteries bilaterally. There is approximately 50% stenosis of the proximal cervical segments of the internal carotid arteries bila terally which is unchanged. The middle and anterior cerebral arteries appear patent. Codominant and p atent vertebral arteries. There is suggested administration of the V4 segment left vertebral artery w hich is unchanged. No aneurysm, dissection, high-grade stenosis or arterial occlusion identified. The basilar and posterior cerebral arteries appear patent. The cerebral venous sinuses appear patent. Th ere is no abnormal intracranial enhancement. The lung apices are clear. There is no pneumothorax. Bilateral thyroid nodules measure up to 10 mm on the left. Unremarkable soft tissues. Degenerative changes of the cervical spine. IMPRESSION: 1. No acute intracranial abnormality. 2. Atherosclerotic plaque of the carotid bulbs results in unchanged 50% stenosis of the proximal cerv ical segments of the internal carotid arteries bilaterally. 3. 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 ACT 112: Negative or not required by law. The above report was generated using voice recognition software. It may contain grammatical, syntax o r spelling errors. Electronically signed by: Alvaro Murrieta M.D. 07/29/2021 5:48 PM
[2021-07-29 18:09] LABS: Lyme Ab IgG w/WB Rflx Negative (Negative)
[2021-07-29 18:10] LABS: Lyme Ab IgM w/WB Rflx Equivocal (Negative)
--- NOTE | 2021-07-29 19:19 | History & Physical Report ---
Date of Service July 29, 2021 Assessment & Plan (1) Weakness generalized: Plan: -Differential includes hyponatremia versus dehydration vs -Patient did have a chiropractor appointment today in which cervical manipulation was performed. CTA of the head and neck showed no acute intracranial abnormality, however will continue to monitor for signs and symptoms of cervical spine injury. -plan (2) Hyponatremia: Plan: -Admission Na+ is 127. -Patient reports decreased PO intake due to decreased appetite over the past 2 to 3 weeks. Patient is also on HCTZ. Hyponatremia is likely a combination of beer potomania, decreased oral intake, and HCTZ use. -Hold HCTZ for now. -Fluid restriction. -Check serum osmolality, urine osmolality, and urine sodium. (3) Alcohol abuse: Plan: -Reports he drinks around 9 beers per day. Last drink Tuesday. -AST today is 105, increased from 57 during hospitalization and 2019. ALT is 55, which is patient's baseline. -We will place on AWSS program. -Ativan ordered as needed for withdrawal symptoms -Thiamine and folic acid daily. (4) Single episode of loss of consciousness without head trauma: Plan: -CTA from [facility] 2018 revealed suspected fenestration of the proximal intracranial portion of the left vertebral artery, as well as 50 to 60% stenosis of the proximal bilateral internal carotid arteries. -Continue Plavix and atorvastatin for TIA/stroke prevention, as prescribed by neurology. (5) Hypertension: Plan: -Hold HCTZ due to hyponatremia, continue lisinopril. (6) GERD (gastroesophageal reflux disease): Plan: -Continue omeprazole. History of Present Illness Chief Complaint: Weakness Primary Care Provider: Rosendo Mckeon DO Pt is a 50 y/o male with a PMH of EtOH abuse, HTN, dyslipidemia, gastric bypass, and GERD who presents today with generalized weakness for 1 day. Patient states he had a chiropractor appointment earlier today in which cervical manipulation was performed. Several hours later, patient was sitting in his chair at home and tried to stand up, but could not do so as he was feeling weak and became "clammy and sweaty" and felt dizzy. Patient was then brought to the emergency department for further evaluation. Patient reports several years ago, he had a similar presentation after cervical manipulation and was told her had an artery dissection. 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 Patient reports he had been feeling generally unwell since around [place], reporting generalized fatigue and decreased appetite. He had a telehealth ap pointment with his family doctor and was tested for COVID-19 and flu. Both of these came back negative. Additionally, patient has a history of drinking approximately 9 beers per day, however he has not had an alcoholic beverage in his Tuesday. His last attempt at quitting alcohol was in June 2019 when he was hospitalized at [facility]. Allergies Allergy/AdvReac Type Severity Reaction Status Date / Time No Known Drug Allergies Allergy Unknown Verified 07/29/21 17:15 Home Medications Medication Instructions Recorded Confirmed Type cholecalciferol (vitamin D3) 25 1,000 units PO QAM 08/22/18 07/29/21 History mcg (1,000 unit) capsule omeprazole magnesium 20 mg 20 mg PO QAM 08/22/18 07/29/21 History tablet,delayed release (Prilosec OTC) multivitamin 2 tab PO QAM 09/01/18 07/29/21 History hydroxyzine HCl 25 mg tablet 25 mg PO TID PRN #30 tab 04/28/20 07/29/21 Rx folic acid 1 mg tablet 1 mg PO DAILY #90 tab 08/22/20 07/29/21 Rx atorvastatin 80 mg tablet 80 mg PO HS #90 tab 11/03/20 07/29/21 Rx sildenafil 50 mg tablet 50 mg PO DAILY #30 tab 02/03/21 07/29/21 Rx clopidogrel 75 mg tablet 75 mg PO DAILY #90 tab 04/13/21 07/29/21 Rx hydrochlorothiazide 25 mg tablet 12.5 mg PO DAILY #90 tab 04/13/21 07/29/21 Rx lisinopril 40 mg tablet See Rx Instructions .ROUTE 07/06/21 07/29/21 Rx .COMPLEX #90 tab adalimumab 40 mg/0.4 mL See Rx Instructions SUBCUT .COMPLEX 07/13/21 07/29/21 History subcutaneous syringe kit (Humira(CF)) cyanocobalamin (vitamin B-12) 500 mcg PO DAILY cap 07/13/21 07/29/21 History 1,000 mcg capsule Past Med/Surg History Medical History Cardiac murmur no bail bonding agent Degenerative disc disease Diabetes mellitus no longer has after gastric bypass Dyslipidemia GERD (gastroesophageal reflux disease) History of gastric ulcer History of Lyme disease Hypertension Hypokalemia Hyponatremia Obesity Osteoarthritis Sleep apnea no longer has after gastric bypass Smokeless tobacco use Surgical History H/O repair of left rotator cuff H/O repair of right rotator cuff History of arthroscopy of left shoulder History of arthroscopy of right shoulder History of bowel resection History of esophagogastroduodenoscopy (EGD) History of gastric bypass History of tonsillectomy and adenoidectomy Family History Mother Family history of diabetes mellitus Hypertension Migraine headache Unknown Diabetes Prostate cancer Grandmother Myocardial infarction Grandfather Myocardial infarction Other No family history of adverse response to anesthesia Denies family history of Ovarian cancer Breast cancer Colorectal cancer Social History Smoking Status: Never smoker Second Hand Exposure: No; Hx Alcohol Use: Yes Alcohol type: beer Hx Substance Use: No Preferred Language: Setswana Communication Ability: Effective Fluorescent Lamp Replacer Required: No Beliefs That Will Affect Care: None marital status: Current Living Situation: Spouse Feels Safe at Home: Yes Assistive Devices: None Review of Systems Review of Systems: Review of systems: Constitutional: Endorses chills; No fever or night sweats Eyes: No diplopia, no worsening or blurred vision ENT: normal hearing, no trouble swallowing Respiratory: No cough, sputum, dyspnea at rest or on exertion Cardiovascular: No chest pain, tightness or palpitations Abdomen: No pain, nausea, vomiting, diarrhea or constipation Musculoskeletal: No joint pain, calf pain, swelling Neurologic: Endorses generalized weakness; denies numbness/tingling, or balance problems Psychiatric: No anxiety or depression Skin: No rash or itch Physical Exam Physical Exam: General: awake, alert, no apparent distress Head: Normocephalic, atraumatic ENT: PERRL, EOMI, no pharyngeal exudate, mucous membranes moist Chest: Clear to auscultation, on room air, no adventitious breath sounds Cardiac: Regular rate and rhythm, no murmur, no JVD, normal peripheral pulses, good capillary refill Abdominal: NABS x 4 quadrants, soft, nontender to palpation, no rebound, guarding or tenderness Extremities: Normal inspection, no peripheral edema or erythema, calfs nontender to palpation Psych: Normal mood and affect Neuro: AAO x 3, strength intact bilaterally and rated 5/5, no motor deficits, speech is clear, no peripheral sensory deficits Skin: no rash or erythema Results & Data Results & Data ([facility]) Vital Signs (Past 12 Hours) Vital Signs Temp Pulse Pulse Resp BP BP Pulse Ox 07/29/21 19:00 74 18 136/79 96 07/29/21 17:30 70 20 137/72 98 07/29/21 16:37 73 16 127/79 98 07/29/21 15:01 36.5 C 94 H 20 103/74 96 Laboratory Results Abnormal lab results 07/29/21 07/29/21 07/29/21 Range/Units 15:57 15:57 16:30 RBC 4.29 L (4.7-6.1) M/uL MCH 34.7 H (25-34) pg RDW Std Deviation 47.7 H (36.4-46.3) fL Sodium 127 L (136-145) mmol/L Chloride 90 L (98-107) mmol/L Creatinine 0.57 L (0.6-1.4) mg/dl Glucose 102 H (70-99) mg/dl Calcium 8.2 L (8.5-10.1) mg/dl Total Bilirubin 1.3 H (0.2-1.0) mg/dl AST 105 H (13-39) U/L ALT 55 H (7-52) U/L Urine Ketones (Negative) Lyme Disease IgM Ab Equivocal A (Negative) 07/29/21 Range/Units 17:31 RBC (4.7-6.1) M/uL MCH (25-34) pg RDW Std Deviation (36.4-46.3) fL Sodium (136-145) mmol/L Chloride (98-107) mmol/L Creatinine (0.6-1.4) mg/dl Glucose (70-99) mg/dl Calcium (8.5-10.1) mg/dl Total Bilirubin (0.2-1.0) mg/dl AST (13-39) U/L ALT (7-52) U/L Urine Ketones Trace H (Negative) Lyme Disease IgM Ab (Negative) Diagnostic Findings Head CTA 07/29/21 16:14 CT angio neck with con, CT angio head wo/w CLINICAL HISTORY: 60 years-old Male with hx vert artery dissection, now dizziness, falls. Acute neck pain with dizziness and prior fall. 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 COMPARISON STUDY: CTA neck 03/19/2020, CTA head 06/30/2019 TECHNIQUE: Following the IV administration of 119 mL of Optiray, CT angiogram of the head and neck was performed from the aortic arch to the skull apex. Images are reviewed in the axial, sagittal, and coronal planes. 3-D MIPS images are created and assessed. IV contrast was administered without complication. All measurements were calculated based on NASCET criteria. Noncontrast head CT was a lso obtained. A dose lowering technique was utilized adhering to the principles of ALARA. CT DOSE: 1667.32 mGy.cm FINDINGS: CT HEAD: Mild involutional changes. No acute intracranial hemorrhage, midline shift, abnormal extra-axial collection, hydrocephalus, acute territorial infarct or intracranial mass. No acute calvarial fracture. The mastoid air cells, middle ear cavities and paranasal sinuses appear clear. Unremarkable soft tissues and orbits. CTA HEAD AND NECK: Three-vessel morphology of the thoracic aortic arch. There is patency of the innominate and imaged subclavian arteries. The common carotid arteries are widely patent. There is atherosclerotic plaque of the carotid bulbs and proximal cervical segments of the internal carotid arteries bilaterally. There is approximately 50% stenosis of the proximal cervical segments of the internal carotid arteries bilaterally which is unchanged. The middle and anterior cerebral arteries appear patent. Codominant and patent vertebral arteries. There is suggested administration of the V4 segment left vertebral artery which is unchanged. No aneurysm, dissection, high-grade stenosis or arterial occlusion identified. The basilar and posterior cerebral arteries appear patent. The cerebral venous sinuses appear patent. There is no abnormal intracranial enhancement. The lung apices are clear. There is no pneumothorax. Bilateral thyroid nodules measure up to 10 mm on the left. Unremarkable soft tissues. Degenerative changes of the cervical spine. IMPRESSION: 1. No acute intracranial abnormality. 2. Atherosclerotic plaque of the carotid bulbs results in unchanged 50% stenosis of the proximal cervical segments of the internal carotid arteries bilaterally. 3. 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 ACT 112: Negative or not required by law. The above report was generated using voice recognition software. It may contain grammatical, syntax or spelling errors. Electronically signed by: Alvaro Murrieta M.D. 07/29/2021 5:48 PM Neck CTA 07/29/21 16:14 CT angio neck with con, CT angio head wo/w CLINICAL HISTORY: 60 years-old Male with hx vert artery dissection, now dizziness, falls. Acute neck pain with dizziness and prior fall. 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 COMPARISON STUDY: CTA neck 03/19/2020, CTA head 06/30/2019 TECHNIQUE: Following the IV administration of 119 mL of Optiray, CT angiogram of the head and neck was performed from the aortic arch to the skull apex. Images are reviewed in the axial, sagittal, and coronal planes. 3-D MIPS images are created and assessed. IV contrast was administered without complication. All measurements were calculated based on NASCET criteria. Noncontrast head CT was also obtained. A dose lowering technique was utilized adhering to the principles of ALARA. CT DOSE: 1667.32 mGy.cm FINDINGS: CT HEAD: Mild involutional changes. No acute intracranial hemorrhage, midline shift, abnormal extra-axial collection, hydrocephalus, acute territorial infarct or intracranial mass. No acute calvarial fracture. The mastoid air cells, middle ear cavities and paranasal sinuses appear clear. Unremarkable soft tissues and orbits. CTA HEAD AND NECK: Three-vessel morphology of the thoracic aortic arch. There is patency of the innominate and imaged subclavian arteries. The common carotid arteries are widely patent. There is atherosclerotic plaque of the carotid bulbs and proximal cervical segments of the internal carotid arteries bilaterally. There is approximately 50% stenosis of the proximal cervical segments of the internal carotid arteries bilaterally which is unchanged. The middle and anterior cerebral arteries appear patent. Codominant and patent vertebral arteries. There is suggested administration of the V4 segment left vertebral artery which is unchanged. No aneurysm, dissection, high-grade stenosis or arterial occlusion identified. The basilar and posterior cerebral arteries appear patent. The cerebral venous sinuses appear patent. There is no abnormal intracranial enhancement. The lung apices are clear. There is no pneumothorax. Bilateral thyroid nodules measure up to 10 mm on the left. Unremarkable soft tissues. Degenerative changes of the cervical spine. IMPRESSION: 1. No acute intracranial abnormality. 2. Atherosclerotic plaque of the carotid bulbs results in unchanged 50% stenosis of the proximal cervical segments of the internal carotid arteries bilaterally. 3. 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 ACT 112: Negative or not required by law. The above report was generated using voice recognition software. It may contain grammatical, syntax or spelling errors. Electronically signed by: Alvaro Murrieta M.D. 07/29/2021 5:48 PM Chest X-Ray 07/29/21 16:15 XR chest 1V portable CLINICAL HISTORY: recent falls, dizziness TECHNIQUE: Single frontal radiograph of the chest was obtained. Comparison: Comparison is made to chest one view 06/28/2019 FINDINGS: No lines and tubes are seen. The cardiomediastinal silhouette is normal. The lungs are clear. No evidence of pleural effusion or pneumothorax. IMPRESSION: No acute chest disease. ACT 112: Negative or not required by law. Electronically signed by: Doug Schmidt M.D. 07/29/2021 4:33 PM Supervising Physician Co-Signing Physician Notes Patient was seen and examined independently I discussed the case with Judi RODRIGUEZ I reviewed pertinent past medical social family history and also the plan of care and agree with the plan of care. 60-year-old male with alcohol abuse and history of gastric bypass who claims to have issues with decreased appetite and weight loss but has very similar episodes of admissions in the past initially he is just hyponatremic at this point time is unknown whether he has gastritis. There was some point in time that he was concerned about having COVID although his COVID testing is negative here. He is an equivocal Lyme IgM and in the past has had for IgG bands reactive on Western blot Patient be brought in given Librium for alcohol withdrawal hydrated have his sodium retested in the morning and with osmolality and urine sodium. Patient's weakness and decreased appetite could be from gastritis from alcohol use will be placed on a intravenous PPI initially. Physical exam finds to be in no distress he has no epigastric distress exam his examination is otherwise benign he has no tremulousness*X he does however complain of anxiety Any exceptions will be noted below PG Care Time/CCT Total # of Minutes Spent Total Time Spent with Patient: Total time spent is greater than 50% in coordination of care (as documented) at patient's floor/unit and/or counseling patient: Coding Level of Care Code 20586 Initial Inpt Care Lvl 2 Diagnoses Hyponatremia E87.1 Alcohol abuse F10.10 Hypertension I10 GERD (gastroesophageal reflux disease) K21.9 Weakness generalized R53.1 Single episode of loss of consciousness without head trauma R40.20
[2021-07-29] MEDS ORDERED: THIAMINE HCL 300 MG in SODIUM CHLORIDE 0.9% 50 ML IV STA (19:29)
[2021-07-29] MEDS ORDERED: LORazepam 1 MG TAB PO PRN (22:00)
[2021-07-29] MEDS ORDERED: POLYETHYLENE (MIRALAX) 17 GM PACK PO PRN (22:00)
[2021-07-29] MEDS ORDERED: ALUMINUM/MAGNESIUM SUSP 30 ML UDC PO PRN (22:00)
[2021-07-29] MEDS ORDERED: ONDANSETRON INJ 2 MG/ML 2 ML VIAL IV PRN (22:00)
[2021-07-29] MEDS ORDERED: hydrOXYzine HCl 25 MG TAB PO PRN (22:00)
[2021-07-29] MEDS: ENOXAPARIN INJ 40 MG/0.4 ML SYR SQ SCH (22:32)
[2021-07-29] MEDS: ATORVASTATIN 40 MG TAB PO SCH (22:32)
[2021-07-30 07:32] LABS: Partial Thromboplastin Ratio 1.1; Partial Thromboplastin Time 28.6 Seconds (21.0-31.0); Prothrombin Time 9.7 Seconds (9.0-12.0)
[2021-07-30 07:48] LABS: Albumin Globulin Ratio 1.6 (0.9-2); Albumin Level 4.1 gm/dl (3.4-5.0); BUN Creatinine Ratio 11.9 (10-20); Bilirubin,Total 2.2 mg/dl (0.2-1.0); Calcium 8.5 mg/dl (8.5-10.1); Creatinine Clr Calc Pharmacy 152.6 ml/min; Est GFR (African American) 129.3 ml/min; Est GFR (Non-African American) 111.6 ml/min; Globulin 2.5 gm/dl (2.5-4.0); Potassium 3.5 mmol/L (3.5-5.1); Total Protein 6.6 gm/dl (6.0-8.3)
[2021-07-30] MEDS: CLOPIDOGREL BISULFATE 75 MG TAB PO SCH (08:20)
[2021-07-30] MEDS: PANTOprazole 40 MG TAB PO SCH (08:20)
[2021-07-30] MEDS: CHOLECALCIFEROL 1,000 UNITS 25 MCG TAB PO SCH (08:21)
[2021-07-30] MEDS: CYANOCOBALAMIN 500 MCG TABLET (VITAMIN B-12) PO SCH (08:21)
[2021-07-30] MEDS: lisinopril 40 MG TAB PO SCH (08:21)
[2021-07-30] MEDS ORDERED: FOLIC ACID 1 MG TAB PO SCH (09:00)
[2021-07-30] MEDS: FOLIC ACID 1 MG TAB PO SCH (10:25)
[2021-07-30] MEDS: THIAMINE HCL 100 MG TAB PO SCH (10:25)
--- NOTE | 2021-07-30 16:41 | Hospitalist Progress Note ---
Date of Service July 30, 2021 Assessment & Plan (1) Dizziness: Plan: Now resolved, likely secondary to EtOH withdrawal, hyponatremia, not likely TIA CTA neg for vert artery dissection -declines MRI 2/2 severe claustrophobia PT/OT evals pending treating EtOH withdrawal with Librium as below (2) Weakness generalized: Plan: -likely 2/2 hyponatremia and EtOH withdrawal improving but remains somewhat treating hypoNa+ and EtOH withdrawal PT/OT (3) Hyponatremia: Plan: -Admission Na+ is 127. -Patient reports decreased PO intake due to decreased appetite over the past 2 to 3 weeks. Patient is also on HCTZ. Hyponatremia is likely a combination of beer potomania, decreased oral intake, and HCTZ use. -continue to hold HCTZ for now, but he reports if he doesn't take it, his hands swell up and get stiff has been on lasix in the past but reports Dr. Starks took him off it for some reason-I don't have access to these old PCP records to see the reason -Fluid restriction. -regular diet -follow BMP (4) Alcohol abuse: Plan: -Reports he drinks around 9 beers per day. Last drink Tuesday. No further dizziness, no tremors or DT, VSS -AST and ALT, TBili elevated likely from EtOH abuse No abd pain, no abd imaging, no need for imaging at this time -continue AWSS -continue Librium tid and taper down, plan to send home with prn Librium, consider naloxone or acamprosate as outpt with PCP-discussed with pt -Thiamine and folic acid daily. ok to take off tele (5) Elevated LFTs: Plan: as above follow LFTs no imaging at this time needed (6) Hypertension: Plan: -Hold HCTZ due to hyponatremia, continue lisinopril. (7) GERD (gastroesophageal reflux disease): Plan: -Continue omeprazole. (8) Carotid artery stenosis: Plan: 50% bilat f/u as outpt continue atorvastatin, Plavix Plan: DVT proph-Lovenox Dispo-continued stay, downgrade to medical, awaiting PT/OT evals, likely dc to home tomorrow Discussed care with at bedside Admission and Anticipated Discharge Date Admission Date: July 29, 2021 Subjective Feeling better, no dizziness, too claustrophobic for an MRI. Feels still generally weak all over but improved. Is eating and drinking, moving bowels, making urine. No abd pain. No headache or lightheadedness. Tele with NSR and ST Review of Systems Review of Systems: All systems reviewed & are unremarkable except as noted in HPI & below Physical Exam Constitutional: WD/WN, vitals as above Eyes: PERRL, conjunctivae normal, anicteric sclerae ENMT: external ear and nose normal, oropharynx normal Neck: trachea midline, no thyromegaly Respiratory: normal respiratory effort, lungs clear to auscultation Cardiovascular: RRR, no murmur, no edema Chest (Breasts): Chest: normal inspection of chest Gastrointestinal (Abdomen): normal bowel sounds, soft, nontender, no hepatosplenomegaly Musculoskeletal: Extremities: extremities normal to inspection; no cyanosis and no clubbing Skin: no rashes, warm and dry Neurologic: moves all extremities and awake; no focal motor deficits Psychiatric: A+Ox3, euthymic affect Lymphatic: no lymphedema Results & Data Results & Data ([facility]) Vital Signs (Past 12 Hours) Vital Signs Temp Pulse Pulse Resp BP Pulse Ox 07/30/21 14:57 94 H 07/30/21 11:53 37.0 C 65 18 143/79 H 95 07/30/21 08:00 36.7 C 100 H 18 122/73 97 07/30/21 07:21 108 H 07/30/21 04:42 37.2 C 97 H 20 147/77 H 97 Laboratory Results 07/30/21 07/30/21 07/29/21 Range/Units 06:43 06:43 17:31 PT 9.7 (9.0-12.0) Seconds INR 1.0 (0.9-1.1) APTT 28.6 (21.0-31.0) Seconds PTT Ratio 1.1 Sodium 128 L (136-145) mmol/L Potassium 3.5 (3.5-5.1) mmol/L Chloride 93 L (98-107) mmol/L Carbon Dioxide 21 (21-32) mmol/L Anion Gap 14 H (3-11) BUN 7 (6-23) mg/dl Creatinine 0.59 L (0.6-1.4) mg/dl Est Cr Clr Drug Dosing 152.6 ml/min Est GFR ( Amer) 129.3 ml/min Est GFR (Non-Af Amer) 111.6 ml/min BUN/Creatinine Ratio 11.9 (10-20) Glucose 93 (70-99) mg/dl Osmolality (280-300) mOsm/kg Calcium 8.5 (8.5-10.1) mg/dl Magnesium (1.7-2.4) mg/dl Total Bilirubin 2.2 H D (0.2-1.0) mg/dl AST 105 H (13-39) U/L ALT 55 H (7-52) U/L Alkaline Phosphatase 72 (34-104) U/L Troponin I (0-0.04) ng/ml Total Protein 6.6 (6.0-8.3) gm/dl Albumin 4.1 (3.4-5.0) gm/dl Globulin 2.5 (2.5-4.0) gm/dl Albumin/Globulin Ratio 1.6 (0.9-2) Lipase (11-82) U/L TSH (0.300-4.500) uIu/ml Urine Color [place] Urine Appearance Clear (Clear) Urine pH 5.0 (4.5-7.5) Ur Specific [place] 1.010 (1.000-1.030) Urine Protein Negative (Negative) Urine Glucose (UA) Negative (Negative) Urine Ketones Trace H (Negative) Urine Blood Negative (Negative) Urine Nitrite Negative (Negative) Urine Bilirubin Negative (Negative) Urine Urobilinogen Negative (Negative) Ur Leukocyte Esterase Negative (Negative) Lyme Disease IgG Ab (Negative) Lyme IgG (Western Blot) Lyme IgG 18 kDa Band Lyme IgG 23 kDa Band Lyme IgG 28 kDa Band Lyme IgG 30 kDa Band Lyme IgG 39 kDa Band Lyme IgG 41 kDa Band Lyme IgG 45 kDa Band Lyme IgG 58 kDa Band Lyme IgG 66 kDa Band Lyme IgG 93 kDa Band Lyme IgM Ab (WB) Lyme Disease IgM Ab (Negative) Lyme IgM 23 kDa Band Lyme IgM 39 kDa Band Lyme IgM 41 kDa Band SARS-CoV-2, RNA, NAAT (NEGATIVE) 07/29/21 07/29/21 07/29/21 Range/Units 16:39 16:30 16:30 PT (9.0-12.0) Seconds INR (0.9-1.1) APTT (21.0-31.0) Seconds PTT Ratio Sodium (136-145) mmol/L Potassium (3.5-5.1) mmol/L Chloride (98-107) mmol/L Carbon Dioxide (21-32) mmol/L Anion Gap (3-11) BUN (6-23) mg/dl Creatinine (0.6-1.4) mg/dl Est Cr Clr Drug Dosing ml/min Est GFR ( Amer) ml/min Est GFR (Non-Af Amer) ml/min BUN/Creatinine Ratio (10-20) Glucose (70-99) mg/dl Osmolality 317 H (280-300) mOsm/kg Calcium (8.5-10.1) mg/dl Magnesium (1.7-2.4) mg/dl Total Bilirubin (0.2-1.0) mg/dl AST (13-39) U/L ALT (7-52) U/L Alkaline Phosphatase (34-104) U/L Troponin I (0-0.04) ng/ml Total Protein (6.0-8.3) gm/dl Albumin (3.4-5.0) gm/dl Globulin (2.5-4.0) gm/dl Albumin/Globulin Ratio (0.9-2) Lipase (11-82) U/L TSH (0.300-4.500) uIu/ml Urine Color Urine Appearance (Clear) Urine pH (4.5-7.5) Ur Specific [place] (1.000-1.030) Urine Protein (Negative) Urine Glucose (UA) (Negative) Urine Ketones (Negative) Urine Blood (Negative) Urine Nitrite (Negative) Urine Bilirubin (Negative) Urine Urobilinogen (Negative) Ur Leukocyte Esterase (Negative) Lyme Disease IgG Ab (Negative) Lyme IgG (Western Blot) Pending Lyme IgG 18 kDa Band Pending Lyme IgG 23 kDa Band Pending Lyme IgG 28 kDa Band Pending Lyme IgG 30 kDa Band Pending Lyme IgG 39 kDa Band Pending Lyme IgG 41 kDa Band Pending Lyme IgG 45 kDa Band Pending Lyme IgG 58 kDa Band Pending Lyme IgG 66 kDa Band Pending Lyme IgG 93 kDa Band Pending Lyme IgM Ab (WB) Pending Lyme Disease IgM Ab (Negative) Lyme IgM 23 kDa Band Pending Lyme IgM 39 kDa Band Pending Lyme IgM 41 kDa Band Pending SARS-CoV-2, RNA, NAAT NEGATIVE (NEGATIVE) 07/29/21 07/29/21 07/29/21 Range/Units 16:30 16:30 16:30 PT 9.9 (9.0-12.0) Seconds INR 1.0 (0.9-1.1) APTT 28.0 (21.0-31.0) Seconds PTT Ratio 1.1 Sodium (136-145) mmol/L Potassium (3.5-5.1) mmol/L Chloride (98-107) mmol/L Carbon Dioxide (21-32) mmol/L Anion Gap (3-11) BUN (6-23) mg/dl Creatinine (0.6-1.4) mg/dl Est Cr Clr Drug Dosing ml/min Est GFR ( Amer) ml/min Est GFR (Non-Af Amer) ml/min BUN/Creatinine Ratio (10-20) Glucose (70-99) mg/dl Osmolality (280-300) mOsm/kg Calcium (8.5-10.1) mg/dl Magnesium (1.7-2.4) mg/dl Total Bilirubin (0.2-1.0) mg/dl AST (13-39) U/L ALT (7-52) U/L Alkaline Phosphatase (34-104) U/L Troponin I (0-0.04) ng/ml Total Protein (6.0-8.3) gm/dl Albumin (3.4-5.0) gm/dl Globulin (2.5-4.0) gm/dl Albumin/Globulin Ratio (0.9-2) Lipase (11-82) U/L TSH 1.332 (0.300-4.500) uIu/ml Urine Color Urine Appearance (Clear) Urine pH (4.5-7.5) Ur Specific [place] (1.000-1.030) Urine Protein (Negative) Urine Glucose (UA) (Negative) Urine Ketones (Negative) Urine Blood (Negative) Urine Nitrite (Negative) Urine Bilirubin (Negative) Urine Urobilinogen (Negative) Ur Leukocyte Esterase (Negative) Lyme Disease IgG Ab Negative (Negative) Lyme IgG (Western Blot) Lyme IgG 18 kDa Band Lyme IgG 23 kDa Band Lyme IgG 28 kDa Band Lyme IgG 30 kDa Band Lyme IgG 39 kDa Band Lyme IgG 41 kDa Band Lyme IgG 45 kDa Band Lyme IgG 58 kDa Band Lyme IgG 66 kDa Band Lyme IgG 93 kDa Band Lyme IgM Ab (WB) Lyme Disease IgM Ab Equivocal A (Negative) Lyme IgM 23 kDa Band Lyme IgM 39 kDa Band Lyme IgM 41 kDa Band SARS-CoV-2, RNA, NAAT (NEGATIVE) 07/29/21 Range/Units 16:19 PT (9.0-12.0) Seconds INR (0.9-1.1) APTT (21.0-31.0) Seconds PTT Ratio Sodium (136-145) mmol/L Potassium (3.5-5.1) mmol/L Chloride (98-107) mmol/L Carbon Dioxide (21-32) mmol/L Anion Gap (3-11) BUN (6-23) mg/dl Creatinine (0.6-1.4) mg/dl Est Cr Clr Drug Dosing ml/min Est GFR ( Amer) ml/min Est GFR (Non-Af Amer) ml/min BUN/Creatinine Ratio (10-20) Glucose (70-99) mg/dl Osmolality (280-300) mOsm/kg Calcium (8.5-10.1) mg/dl Magnesium 2.1 (1.7-2.4) mg/dl Total Bilirubin (0.2-1.0) mg/dl AST (13-39) U/L ALT (7-52) U/L Alkaline Phosphatase (34-104) U/L Troponin I < 0.03 (0-0.04) ng/ml Total Protein (6.0-8.3) gm/dl Albumin (3.4-5.0) gm/dl Globulin (2.5-4.0) gm/dl Albumin/Globulin Ratio (0.9-2) Lipase 25 (11-82) U/L TSH (0.300-4.500) uIu/ml Urine Color Urine Appearance (Clear) Urine pH (4.5-7.5) Ur Specific [place] (1.000-1.030) Urine Protein (Negative) Urine Glucose (UA) (Negative) Urine Ketones (Negative) Urine Blood (Negative) Urine Nitrite (Negative) Urine Bilirubin (Negative) Urine Urobilinogen (Negative) Ur Leukocyte Esterase (Negative) Lyme Disease IgG Ab (Negative) Lyme IgG (Western Blot) Lyme IgG 18 kDa Band Lyme IgG 23 kDa Band Lyme IgG 28 kDa Band Lyme IgG 30 kDa Band Lyme IgG 39 kDa Band Lyme IgG 41 kDa Band Lyme IgG 45 kDa Band Lyme IgG 58 kDa Band Lyme IgG 66 kDa Band Lyme IgG 93 kDa Band Lyme IgM Ab (WB) Lyme Disease IgM Ab (Negative) Lyme IgM 23 kDa Band Lyme IgM 39 kDa Band Lyme IgM 41 kDa Band SARS-CoV-2, RNA, NAAT (NEGATIVE) PG Care Time/CCT Total # of Minutes Spent Total Time Spent with Patient: Total time spent is greater than 50% in coordination of care (as documented) at patient's floor/unit and/or counseling patient: Coding Level of Care Code 79332 Subseq Hosp Care Lvl 3 Diagnoses Weakness generalized R53.1 Hyponatremia E87.1 Alcohol abuse F10.10 Hypertension I10 GERD (gastroesophageal reflux disease) K21.9 Dizziness R42 Elevated LFTs R79.89 Carotid artery stenosis I65.29
--- NOTE | 2021-07-30 18:17 | Electrocardiogram Report ---
Test Reason : Blood Pressure : / mmHG Vent. Rate : 070 BPM Atrial Rate : 070 BPM P-R Int : 152 ms QRS Dur : 084 ms QT Int : 386 ms P-R-T Axes : 053 024 043 degrees QTc Int : 416 ms Normal sinus rhythm Normal ECG When compared with ECG of 28-JUN-2019 14:59, No significant change was found Confirmed by Julian Mccarty [id number]) on 07/30/2021 6:16:31 PM Referred By: REFERRED SELF Confirmed By:Julian Mccarty
[2021-07-30] MEDS: ATORVASTATIN 40 MG TAB PO SCH (20:40)
[2021-07-30] MEDS: ENOXAPARIN INJ 40 MG/0.4 ML SYR SQ SCH (20:41)
[2021-07-31 06:39] LABS: Basophils # (auto) 0.03 K/uL (0-0.2); Basophils % (auto) 0.4 %; Eosinophils # (auto) 0.09 K/uL (0-0.5); Eosinophils % (auto) 1.2 %; Hematocrit (blood only) 43.2 % (42-52); Hemoglobin 14.9 g/dL (14.0-18.0); Immature Granulocytes # (auto) 0.02 K/uL (0.00-0.02); Immature Granulocytes % (auto) 0.3 %; Lymphocytes # (auto) 2.37 K/uL (1.2-3.4); Lymphocytes % (auto) 30.7 %; Mean Corpuscular Hemoglobin 35.1 pg (25-34); Mean Corpuscular Hgb Conc 34.5 g/dL (32-36); Mean Corpuscular Volume 101.9 fL (80-100); Mean Platelet Volume 10.6 fL (7.4-10.4); Monocytes # (auto) 0.84 K/uL (0.11-0.59); Monocytes % (auto) 10.9 %; Neutrophils # (auto) 4.38 K/uL (1.4-6.5); Neutrophils % (auto) 56.5 %; Platelet Count 258 K/uL (130-400); RDW Coefficient of Variation 13.3 % (11.5-14.5); Red Blood Count 4.24 M/uL (4.7-6.1); White Blood Count 7.73 K/uL (4.8-10.8)
--- NOTE | 2021-07-31 06:59 | Ultrasound Report ---
US liver HISTORY: 60 years-old Male elevated LFTs,alcohol use acutely elevated LFTs COMPARISON: CT abdomen and pelvis 01/25/2012 TECHNIQUE: Multiple real-time sonographic images of the abdominal right upper quadrant were obtained assessing grayscale appearance and color flow FINDINGS: The pancreas is obscured by overlying bowel gas. The liver is heterogeneous and echogenic. No margina l nodularity or hepatic mass identified. Mild gallbladder sludge without cholelithiasis, gallbladder wall thickening or pericholecystic fluid. The sonographic Darnell sign was reported as negative. [place] l common bile duct measures 3 mm. The imaged right kidney is unremarkable without hydronephrosis. IMPRESSION: 1. Gallbladder sludge without cholelithiasis or sonographic evidence of acute cholecystitis. 2. Hepatic steatosis. ACT 112: Negative or not required by law. The above report was generated using voice recognition software. It may contain grammatical, syntax o r spelling errors. Electronically signed by: Alvaro Murrieta M.D. 07/31/2021 6:58 AM
[2021-07-31 07:05] LABS: Albumin Level 4.3 gm/dl (3.4-5.0); BUN Creatinine Ratio 14.1 (10-20); Bilirubin Direct 0.8 mg/dl (0-0.2); Bilirubin,Total 2.6 mg/dl (0.2-1.0); Calcium 8.7 mg/dl (8.5-10.1); Creatinine Clr Calc Pharmacy 115.4 ml/min; Est GFR (African American) 115.3 ml/min; Est GFR (Non-African American) 99.5 ml/min; Magnesium 2.2 mg/dl (1.7-2.4); Phosphorus 2.8 mg/dl (2.5-4.9); Potassium 3.3 mmol/L (3.5-5.1); Total Protein 6.8 gm/dl (6.0-8.3)
[2021-07-31] MEDS: CHOLECALCIFEROL 1,000 UNITS 25 MCG TAB PO SCH (08:34)
[2021-07-31] MEDS: lisinopril 40 MG TAB PO SCH (08:34)
[2021-07-31] MEDS: FOLIC ACID 1 MG TAB PO SCH (08:34)
[2021-07-31] MEDS: PANTOprazole 40 MG TAB PO SCH (08:34)
[2021-07-31] MEDS: THIAMINE HCL 100 MG TAB PO SCH (08:34)
[2021-07-31] MEDS: CLOPIDOGREL BISULFATE 75 MG TAB PO SCH (08:34)
[2021-07-31] MEDS: CYANOCOBALAMIN 500 MCG TABLET (VITAMIN B-12) PO SCH (08:35)
[2021-07-31] MEDS ORDERED: POTASSIUM CHLORIDE CRTAB 20 MEQ TABCR PO STA (08:49)
--- NOTE | 2021-07-31 14:04 | Discharge Summary ---
Date of Service July 31, 2021 Admission HPI Per Admitting Provider Pt is a 50 y/o male with a PMH of EtOH abuse, HTN, dyslipidemia, gastric bypass, and GERD who presents today with generalized weakness for 1 day. Patient states he had a chiropractor appointment earlier today in which cervical manipulation was performed. Several hours later, patient was sitting in his chair at home and tried to stand up, but could not do so as he was feeling weak and became "clammy and sweaty" and felt dizzy. Patient was then brought to the emergency department for further evaluation. Patient reports several years ago, he had a similar presentation after cervical manipulation and was told her had an artery dissection. 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 Patient reports he had been feeling generally unwell since around [place], reporting generalized fatigue and decreased appetite. He had a telehealth appointment with his family doctor and was tested for COVID-19 and flu. Both of these came back negative. Additionally, patient has a history of drinking approximately 9 beers per day, however he has not had an alcoholic beverage in his Tuesday. His last attempt at quitting alcohol was in June 2019 when he was hospitalized at [facility]. Principal Diagnosis Dizziness,hyponatremia, Alcohol withdrawal with alcohol use disorder, elevated LFTs Discharge Exam Constitutional WD/WN, vitals as above Eyes PERRL, conjunctivae normal, anicteric sclerae ENMT external ear and nose normal, oropharynx normal Neck trachea midline, no thyromegaly Respiratory normal respiratory effort, lungs clear to auscultation Cardiovascular RRR, no murmur, no edema Chest (Breasts) Chest: normal inspection of chest Gastrointestinal (Abdomen) normal bowel sounds, soft, nontender, no hepatosplenomegaly Musculoskeletal Extremities: extremities normal to inspection; no cyanosis and no clubbing Skin no rashes, warm and dry Neurologic moves all extremities and awake; no focal motor deficits Psychiatric A+Ox3, euthymic affect Lymphatic no lymphedema Discharge Data Allergies Allergy/AdvReac Type Severity Reaction Status Date / Time No Known Drug Allergies Allergy Unknown Verified 08/07/21 09:28 Consultations 07/29/21 18:35 ED Decision to Admit Stat Ordered Studies 07/29/21 16:14 CT angio head wo/w Stat CT angio neck with con Stat 07/31/21 16:50 US liver Routine Hospital Course (1) Dizziness: Now resolved, likely secondary to EtOH withdrawal, hyponatremia, not likely TIA CTA neg for vert artery dissection -declines MRI 2/2 severe claustrophobia PT/OT evals performed, pt stable for discharge to home treating EtOH withdrawal with Librium as below treating hyponatremia as below (2) Weakness generalized: -likely 2/2 hyponatremia and EtOH withdrawal much improved/resolved treating hypoNa+ and EtOH withdrawal PT/OT evals recommend return home without any services (3) Hyponatremia: -Admission Na+ is 127, now up to 129 with stopping HCTZ and not drinking EtOH, liberalize salt in diet -Patient reports decreased PO intake due to decreased appetite over the past 2 to 3 weeks. Patient is also on HCTZ. Hyponatremia is likely a combination of beer potomania, decreased oral intake, and HCTZ use. -continue to hold HCTZ for now, but he reports if he doesn't take it, his hands swell up and get stiff has been on lasix in the past but reports Dr. Starks took him off it for some reason-I don't have access to these old PCP records to see the reason recommend repeat labs in 1 week and f/u with PCP, may restart HCTZ in future if not drinking EtOH and with close following of BMP after restarting liberalize salt in diet for now -now asymptomatic, no need for further hospitalization and Na+ continues to trend upward (4) Alcohol abuse: -Reports he drinks around 9 beers per day. Last drink Tuesday. No further dizziness, no tremors or DT, VSS -AST and ALT, TBili elevated likely from EtOH abuse No abd pain,no nausea Liver US with fatty liver likely from EtOH use and being overweight-discussed results with pt -continue Librium bid and taper down, plan to send home with prn Librium, consider naloxone or acamprosate as outpt with PCP-discussed with pt -Thiamine and folic acid daily. encouraged continued abstinence from EtOH and AA meetings (5) Elevated LFTs: as above, 2/2 EtOH use disorder follow LFTs-stable from yesterday, f/u LGFTs as outpt in 1 week (6) Hypertension: -Hold HCTZ due to hyponatremia, continue lisinopril. (7) GERD (gastroesophageal reflux disease): -Continue omeprazole. (8) Carotid artery stenosis: 50% bilat f/u as outpt continue atorvastatin, Plavix DVT proph-Lovenox Dispo-dc to home Unfortunately, pt had a COVID exposure while in the hospital. He was agreeable to testing prior to discharge and this was negative for COVID. Encouraged monitoring of symptoms and repeat testing in 5 days through PCP Total Time Total Time Spent Total Time Spent (In Minutes): 40 min Discharge Plan Discharge Items Patient Disposition: Home - Self-Care Reason For Visit: WEAKNESS, HYPONATREMIA Discharge Diagnosis: Dizziness, hyponatremia, Alcohol withdrawal Condition on Discharge: Good Activity: Resume your previous activity Driving/Machine Use: No driving while taking Librium Non-emergency contact: Primary Care Provider Call non-emergency contact if: you have any medication questions and your symptoms worsen Follow-up/Referrals: Rosendo Mckeon, DO [Primary Care Provider] - 08/07/21 9:20 am Diet: Regular Fluids: 1800ml (7 cups) Addtl Attending Provider Instructions: Please have your blood work repeated on Tuesday to check your sodium levels as well as your liver tests. These results should go to Dr. Mckeon for review. You should remain OFF your HCTZ water pill for now unless Dr. Mckeon advises you to go back on it. It is very important that you not drink any alcohol again. It was a combination of excessive alcohol use plus the HCTZ that caused you to have low sodium levels. Your level was improved up to 129 on the day of discharge and you were feeling well. You should take Librium twice a day x 2 days, then once daily x 2 days, then once daily as needed for alcohol withdrawal symptoms (such as tremors, fast hear rate, nausea,sense of anxiety, etc.). Please talk to Dr. Mckeon about being on medication ocean transportation intermediary to help with alcohol cravings. Your liver tests are elevated due to fatty liver disease from alcohol use. This will improve over time as long as you continue to not drink alcohol. It would also benefit you to lose more weight. Unfortunately, you were exposed to COVID while you were in the hospital. It is recommended that you have a repeat COVID test in 5 more days and wear a mask around others in the meantime. If you experience fevers, shortness of breath, cough, runny nose, sore throat, headache, nausea, loss of taste or smell,or any other symptoms of COVID, please let your doctor know right away. Pending Studies at Discharge: No Stand-Alone Forms: My [facility] Medications and DC Order Prescriptions: New chlordiazepoxide HCl 10 mg Capsule 10 mg PO BID Qty: 14 RF: 0 thiamine HCl (vitamin B1) 100 mg Tablet 100 mg PO QAM Qty: 30 RF: 0 Continued cholecalciferol (vitamin D3) 1,000 unit capsule 1,000 units PO QAM RF: 0 omeprazole magnesium [Prilosec OTC] 20 mg tablet,delayed release (DR/EC) 20 mg PO QAM RF: 0 folic acid 1 mg tablet 1 mg PO DAILY Qty: 90 RF: 3 atorvastatin 80 mg tablet 80 mg PO HS Qty: 90 RF: 1 clopidogrel 75 mg tablet 75 mg PO DAILY Qty: 90 RF: 1 lisinopril 40 mg tablet See Rx Instructions .ROUTE .COMPLEX Qty: 90 RF: 0 hydroxyzine HCl 25 mg tablet 25 mg PO TID PRN (Reason: anxiety) Qty: 30 RF: 1 cyanocobalamin (vitamin B-12) 1,000 mcg capsule 500 mcg PO DAILY RF: 0 Humira(CF) 40 mg/0.4 mL syringe kit See Rx Instructions subcut .COMPLEX RF: 0 multivitamin Tablet,Chewable 2 tab PO QAM RF: 0 Discontinued hydrochlorothiazide 25 mg tablet 12.5 mg PO DAILY Qty: 90 RF: 1 No Action hydrochlorothiazide 25 mg tablet 12.5 mg PO DAILY Qty: 90 RF: 1 Discharge Orders: Discharge Order (Routine); Ordered 07/31/21 Ordered By: Kiersten Rubalcava Admission Data Admit Date/Time: 07/29/21 19:50 Attending Provider: Kiersten Rubalcava Admit Provider: Noel Abraham Primary Care Provider: Rosendo Mckeon Other Providers: Noel Abraham Other Interventions: Discharge Summary Assessment (RN) Last Done: 07/31/21 14:12 Coding Level of Care Code D/C DAY MANAGEMENT >30 MINS Diagnoses Dizziness R42 Weakness generalized R53.1 Hyponatremia E87.1 Alcohol abuse F10.10 Elevated LFTs R79.89 Hypertension I10 GERD (gastroesophageal reflux disease) K21.9 Carotid artery stenosis I65.29
[2021-08-01 01:41] LABS: 18KDIGG Band NON-REACTIVE; 23KDIGG Band NON-REACTIVE; 23KDIGM Band NON-REACTIVE; 28KDIGG Band NON-REACTIVE; 30KDIGG Band NON-REACTIVE; 39KDIGG Band REACTIVE; 39KDIGM Band NON-REACTIVE; 41KDIGG Band REACTIVE; 41KDIGM Band NON-REACTIVE; 45KDIGG Band NON-REACTIVE; 58KDIGG Band NON-REACTIVE; 66KDIGG Band NON-REACTIVE; 93KDIGG Band NON-REACTIVE; Lyme Antibodies, WB IgG NEGATIVE (NEGATIVE); Lyme Antibodies, WB IgM NEGATIVE (NEGATIVE)
== END 2021-07-31 14:58 | disposition home or self-care (01) | DRG 897 ==
LOC: ED 14:49 → SUATTDRO 19:50 → 2N 19:50